=== PATIENT | male | born 1955 | race Caucasian/White ===

== ENCOUNTER 2018-11-23 14:16 | Emergency (ER) | payer MEDICARE, SELFPAY ==
[2018-11-23 14:17] VITALS: BP 133/92; PULSE 78; RESP 18; TEMP 36.6; O2SAT 98; BMI 31.7
--- NOTE | 2018-11-23 14:31 | RAD_ITS ---
STUDY: X-RAY CHEST REASON FOR EXAM: Male, 63 years old. Left lower anterior rib pain. TECHNIQUE: PA and lateral views of the chest. COMPARISON: Comparison is made with prior examination dated September 07, 2016. FINDINGS: Surgical clips are seen in the right axillary region. Hyperinflation. Mild degree of increased markings at the right lung base suggestive of a atelectasis. This is superimposed on mild degree of bibasilar scarring. There is mild cardiac enlargement. A right-sided dual-chamber pacemaker is seen. Normal mediastinum and nesha. There is prominence of the pulmonary hilar arteries without peripheral pulmonary vascular congestion, suggesting pulmonary hypertension. There is atherosclerotic calcification of the aortic arch with tortuosity. There are diffuse degenerative changes of the visualized thoracic spine. Normal visualized ribs, clavicles, and shoulders. There is no demonstrated abnormality of the visualized soft tissue structures of the upper abdomen. RAD/Chest PA and Lateral IMPRESSION: Mild degree of increased markings at the right lung base suggestive of mild right basilar atelectasis superimposed on scarring. Electronically Signed: Shemar Wylie, at 15:04 EDT , Service support ,
--- NOTE | 2018-11-23 15:30 | ED.DCSUM_ITS ---
- ER Visit Summary Date of Service: 11/23/18 Chief Complaint: Left lower rib cage pain History of Present Illness: The patient is a 63 M states he was working on his car he was leaning over the front cord into the engine of the car when he felt a pop. This was on Thursday he has had pain to his left lower anterior rib cage since that time. Denies any shortness of breath. Is worse with movement. He denies any hemoptysis. Patient is on Xarelto. He also has a history of CAD, cardiac stents hypertension high cholesterol. Physical Examination: Older male no acute distress. Vital signs stable afebrile. HEENT exam unremarkable. Neck nontender. Lungs clear to auscultation bilaterally. Heart regular rate and rhythm no murmur. Chest wall left lower rib cage Chhaya tender to palpation. There is no crepitance or subcu air. No gross bony deformity. But there is bony tenderness. Abdomen is soft and nontender normal bowel sounds no peritoneal signs. The left upper quadrant is nontender. Extremities moves all 4. Neurovascular intact. Calves are nontender. Neurologically he is awake and alert with no focal motor deficits. Test Results: Chest x-ray AP lateral view shows no acute abnormality. There is a pacemaker defibrillator. There is no obvious rib fracture. No pneumothorax. No effusion. This is read both by myself and the radiologist. Emergency Department Course and Treatment: Discussed x-ray results the patient. On repeat exam at 1532 patient is doing well. Treatment Plan: Ice to the area. [place] for pain as needed. Pillow to brace the rib cage injury site. Patient was instructed that this could be a nondisplaced fracture that is not seen on a plain film. Disposition: Discharge Impression: Acute left rib cage contusion This note was generated with [employer] dictation software. It may contain incorrect words, spelling, and punctuation that were not noted in review of the chart prior to signing ED Disposition - Plan for ED Patient: Referrals: Ronald Phelps III, MD [Primary Care Provider] -
--- NOTE | 2018-11-23 15:34 | DCINST.ED_ITS ---
ED Disposition - Plan for ED Patient: Disposition: Home or Assisted Living Instructions: RIB: CONTUSION vs MINOR FRACTURE Prescriptions: Hydrocodone/Acetaminophen [[place] 10-325 Tablet] 1 ea PO 4X/DAY PRN PRN 4 Days #14 tab PRN Reason: Pain Prescription Printed Referrals: Ronald Phelps III, MD [Primary Care Provider] - 1 Week if not improving Additional Instructions: You have a bruised rib. [place] for pain. Ice to the area. Use a pillow to support the rib. Follow-up with your doctor if not improving.
== END 2018-11-23 15:45 | disposition home or self-care (01) ==
PROVIDERS: Emergency Provider Emergency Medicine; Family Provider Family Medicine; PCP Family Medicine
DX: S20.212A Contusion of left front wall of thorax, initial encounter (principal); W22.09XA Striking against other stationary object, initial encounter; Y93.9 Activity, unspecified; Y92.9 Unspecified place or not applicable; Y99.9 Unspecified external cause status; I25.10 Atherosclerotic heart disease of native coronary artery without angina pectoris; I10 Essential (primary) hypertension; E78.00 Pure hypercholesterolemia, unspecified; Z72.0 Tobacco use; I25.2 Old myocardial infarction; Z79.82 Long term (current) use of aspirin; Z79.01 Long term (current) use of anticoagulants; Z79.899 Other long term (current) drug therapy; Z95.5 Presence of coronary angioplasty implant and graft; Z95.810 Presence of automatic (implantable) cardiac defibrillator
CPT/HCPCS: 71046; 99283

== ENCOUNTER 2018-12-08 13:04 | Emergency (ER) | payer MEDICARE, SELFPAY ==
[2018-12-08 13:05] VITALS: BP 139/84; PULSE 84; RESP 18; TEMP 36.7; O2SAT 97; BMI 31.1
--- NOTE | 2018-12-08 13:50 | RAD_ITS ---
STUDY: X-RAY - PELVIS AND LEFT HIP REASON FOR EXAM: Male, 63 years old. 4 day history of pain. No known injury. TECHNIQUE: 3 views of the pelvis and hip. COMPARISON: None. FINDINGS: There is a non-specific bowel gas pattern. There are atherosclerotic vascular calcifications of the pelvic arteries. Normal bilateral iliac wings, sacroiliac joints and visualized sacrum. Normal bilateral superior and inferior pubic rami. Normal pubic symphysis. Normal bilateral ischial tuberosities. Normal visualized femoral head. Normal acetabulum. There is mild articular joint space narrowing of the hip. Degenerative changes in the lower lumbar spine. RAD/HIP, UNI W/ Pelvis 2-3 Views IMPRESSION: Degenerative changes. No fracture is seen. Electronically Signed: Shemar Wylie, at 14:14 EDT , Service support ,
[2018-12-08] MEDS: oxyCODONE 5 MG Tablet PO (14:07)
--- NOTE | 2018-12-08 14:35 | ED.DCSUM_ITS ---
History of Present Illness Chief Complaint: Lower Extremity Injury Informant: Patient Narrative: Bud presents with left hip pain for 3 days. 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 He is able to ambulate but has quite a bit of pain in his groin and buttock region. He has no other fall and no other pain. Pain is worse with ambulating and movement. Fever or chills. Past Medical History - Allergies and Home Meds Allergies/Adverse Reactions: Allergies codeine Allergy (Verified 12/08/18 13:05) Itching Primary Care Physician: Ronald Phelps III, MD [Primary Care Provider] - Past Medical History: - - He does have a significant medical history see [facility] Smoking Status: Current every day smoker Review of Systems All systems negative except as indicated General: Denies: Fever Musculoskeletal: Reports: - - Hip pain as in HPI Skin: Denies: Rash Neurological: Denies: Weakness Hematologic: Denies: Easy bruising, Easy bleeding Physical Exam Vital Signs/Narrative: Vital Signs Temp Pulse Resp BP Pulse Ox 12/08/18 13:05 98.1 F 84 18 139/84 H 97 General: Well nourished, Well developed Neck: Supple Respiratory: No distress, CTA bilaterally Abdomen: Soft, Nontender Back: Normal Inspection Extremities: - - There is no 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 He has no tenderness over his greater trochanter. Skin: Normal color Neurological: Alert, Oriented x3 Diagnostic/Tx/Re-eval Left hip x-ray reviewed by me, I am looking at the x-ray at this moment I see left-sided DJD, SI joint is intact. No fracture is seen. - Medical Decision Making Patient has a normal x-ray. I will treat with analgesia. ED Disposition - Plan for ED Patient: Disposition: Home or Assisted Living Diagnosis: Degenerative joint disease (DJD) of hip Instructions: ED Osteoarthritis Prescriptions: Oxycodone HCl/Acetaminophen [Percocet 5/325] 1 tab PO Q6H PRN PRN 3 Days #12 tab PRN Reason: Pain Prescription Printed Referrals: Ronald Phelps III, MD [Primary Care Provider] - 3-5 Days
== END 2018-12-08 14:59 | disposition home or self-care (01) ==
PROVIDERS: Emergency Provider Emergency Medicine; Family Provider Family Medicine; PCP Family Medicine
DX: M16.12 Unilateral primary osteoarthritis, left hip (principal); F17.200 Nicotine dependence, unspecified, uncomplicated; Z88.5 Allergy status to narcotic agent; Z79.01 Long term (current) use of anticoagulants; Z79.899 Other long term (current) drug therapy
CPT/HCPCS: 73502; 99283

== ENCOUNTER → 2019-02-03 12:20 | Outpatient (CLI) | payer MEDICARE, SELFPAY ==
[2019-02-03 13:24] LABS: Anion Gap 7 (5-15); BUN 25 mg/dL (7-18); Calcium,Total 8.9 mg/dL (8.5-10.1); Chloride 104 mmol/L (98-107); Creatinine, Serum 1.47 mg/dL (0.70-1.30); EST Glomerular Filtration Rate 51 mL/min (>60); Est Glom Filt Rate - Afr Amer 62 mL/min (>60); Glucose 119 mg/dL (74-106); Potassium 3.9 mmol/L (3.5-5.1); Sodium Level 140 mmol/L (136-145)
== END ==
PROVIDERS: Family Provider Family Medicine; PCP Family Medicine
DX: I48.19 Other persistent atrial fibrillation (principal)
CPT/HCPCS: 36415; 80048

== ENCOUNTER → 2020-01-03 14:29 | Outpatient (CLI) | payer MEDICARE, SELFPAY ==
--- NOTE | 2020-01-03 14:45 | CT_ITS ---
STUDY: CT RIGHT LOWER EXTREMITY REASON FOR EXAM: Right knee osteoarthritis, surgical planning. TECHNIQUE: Transaxial CT imaging of the lower extremity was performed. Coronal and sagittal images were reformatted. Individualized dose optimization techniques were used for this CT. COMPARISON: None. FINDINGS: Knee: There are marginal osteophytes of the medial femorotibial compartment without significant joint space narrowing. There is a cyst in the medial aspect of the distal femoral metaphysis. There are marginal osteophytes, subchondral eburnation and mild joint space narrowing of the lateral femorotibial compartment (coronal reconstruction 30). There are small marginal osteophytes and mild joint space narrowing of the patellofemoral compartment (sagittal reconstruction 32). Normal proximal tibiofibular articulation. There is a joint effusion. There is an intra-articular body at the anterior aspect of the knee joint (sagittal reconstructions 31-35). There is a prominent intra-articular body in the distal popliteus tendon sheath (sagittal reconstructions 35-42). The quadriceps tendon is grossly normal. The patellar tendon is grossly normal. Normal Hoffa''s fat pad. There is vascular calcification. Hip: There are very small marginal osteophytes of the femoral head without joint space narrowing of the hip joint. Ankle: Normal tibiotalar, posterior subtalar, talonavicular and calcaneocuboid articulations. There is a small plantar calcaneal enthesophyte. There is an ossification at the distal aspect of the medial malleolus. CT/Extremity Lower without Contra IMPRESSION: Right knee arthrosis with intra-articular bodies. Right knee joint effusion. Electronically Signed: Alex Norman MD at 12:26 EDT Tel , Service support ,
[2020-01-03 17:16] LABS: Magnesium 2.1 mg/dL (1.6-2.6)
== END ==
PROVIDERS: Anesthesiology; Referring Provider Orthopaedic Surgery; Visit Provider Orthopaedic Surgery
DX: M17.11 Unilateral primary osteoarthritis, right knee (principal); M21.161 Varus deformity, not elsewhere classified, right knee
CPT/HCPCS: 73700; 83735

== ENCOUNTER 2020-01-16 07:38 | Observation (INO) | payer MEDICARE, SELFPAY ==
[2020-01-03 16:24] LABS: Absolute Lymphocyte Count 2.08 X10^3/uL (0.83-4.51); Absolute Neutrophil Count 3.8 X10^3/uL (2.0-7.7); Basophil# 0.08 X10^3/uL; Basophil% 1.1 % (0-1); Eosinophil# 0.49 X10^3/uL; Eosinophils% 6.9 % (0-5); Hemoglobin 14.4 g/dL (13.0-16.5); Lymphocyte # 2.08 X10^3/ul (4.0); Lymphocyte % 29.4 % (19-41); Mean Corp Hgb Conc 31.3 g/dL (32-36); Mean Corpuscular Hgb 30.3 pg (27.0-32.0); Mean Corpuscular Volume 96.8 fL (80-94); Mean Platelet Vol. 9.9 fl (6.2-12.0); Monocyte% 8.5 % (0-10); NRBC Flagged by Analyzer 0 % (0-5); Neutrophil % 53.8 % (47-70); Platelet Count 424 K/mm3 (150-450); RBC Distribution Width CV 13.2 % (11.6-14.6); RBC Distribution Width SD 47.1 fl (35.1-43.9); Red Blood Count 4.75 M/mm3 (4.6-6.2); White Blood Count 7.1 K/mm3 (4.4-11.0)
[2020-01-03 16:50] LABS: ALB/GLOB Ratio 0.8 RATIO (0.9-2.4); AST(SGOT) 15 U/L (15-37); Alanine Aminotransfer ALT/SGPT 19 U/L (16-61); Albumin, Serum 3.4 g/dL (3.2-5.0); Alkaline Phosphatase 67 U/L (45-117); Anion Gap 4 (5-15); BUN 22 mg/dL (7-18); BUN/Creat Ratio 15.3 RATIO (10-20); Calcium,Total 8.7 mg/dL (8.5-10.1); Chloride 105 mmol/L (98-107); Cholesterol 139 mg/dL (200); Creatinine, Serum 1.44 mg/dL (0.70-1.30); EST Glomerular Filtration Rate 53 mL/min (>60); Est Glom Filt Rate - Afr Amer 64 mL/min (>60); Globulin 4.2 g/dL (2.2-4.2); Glucose 91 mg/dL (74-106); High Density Lipoprotein 44 mg/dL; Potassium 4.1 mmol/L (3.5-5.1); Protein, Total 7.6 g/dL (6.4-8.2); Sodium Level 136 mmol/L (136-145); Triglycerides 104 mg/dL; Very Low Density Lipoprotein 21 mg/dL (5-40)
--- NOTE | 2020-01-09 09:20 | EKG12_ITS ---
Test Reason : PRE OP Blood Pressure : / mmHG Vent. Rate : 087 BPM Atrial Rate : 100 BPM P-R Int : 000 ms QRS Dur : 176 ms QT Int : 440 ms P-R-T Axes : 000 270 063 degrees QTc Int : 529 ms Atrial fibrillation Right bundle branch block Possible Lateral infarct , age undetermined Abnormal ECG Confirmed by ANGELA JUSTICE, SAM ([id number]), editorial cartoonist NICHELLE WETZEL ([id number]) on 01/11/2020 10:48:56 AM Referred By: Sundeep Rueda Confirmed By:ERNESTINA MILLER MD
[2020-01-16] VITALS (16 sets, daily range): BP systolic 91–163; BP diastolic 63–89; PULSE 58–78; RESP 16–18; TEMP 36.3–37.6; O2SAT 95–100; BMI 28.6
--- NOTE | 2020-01-16 | SYN_PTH ---
PATIENT: DL STEEN LOC: MS3 U#:[id number] AGE/SX: 64/M [place] [facility] [place]16[place]: Dr. Sundeep Rueda DO : 1955 BED: 1 DIS: 01/17/2020 SPEC #: [id number] RECD: 01/16/20 13:25 STATUS: MAMTA REQ #: [id number] MANUEL: 01/16/20 00:[address]: Sundeep Rueda DEPT: SURGICAL PATHOLOGY RECD BY: Stalin Orellana ENTERED: 01/16/20 13:26 SP TYPE: SYNOVIUM ANDREINA DR: Keya Primary Care Phys Tissues: A - Synovial tissue of joint, NOS Knee, NOS Procedures: Decalcification bone/plaque Surgery Specimen Level IV HEADER OPERATION: ERAS, total knee replacement robotic arm assist PRE-OP DIAGNOSIS: Unilateral primary osteoarthritis, valgus deformity TISSUE SUBMITTED: A - Right synovium tissue, B - Right knee bone and tissue MICROSCOPIC DIAGNOSIS A. Right synovial tissue: Fragments of fibroadipose tissue, fibroconnective tissue, skeletal muscle tissue and moderately reactive synovial tissue with extensive fibrinous exudation. B. Bone and soft tissue right knee, total knee replacement: Pieces of bone with degenerative osteoarthritic changes. Fibroadipose tissue, fibroconnective tissue and reactive synovial tissue with fibrinous exudation. CHANDANA:sylvia 01/19/20 MICROSCOPIC DESCRIPTION Slides are reviewed. GROSS DESCRIPTION A - Received in fixative is one container labeled with the patient's name and designated right synovium tissue. The specimen consists of multiple irregular fragments of loya, indurated tissue that in aggregate measure 10 x 8 x 3 cm. Water Chaser sections are submitted in four cassettes. B - Received is one container designated bone and soft tissue right knee. The specimen consists of multiple fragments of loya-yellow bone measuring in aggregate 11 x 10 x 3.5 cm. Also in the specimen container are multiple fragments of yellow-white soft tissue measuring in aggregate 10 x 9 x 3.5 cm. A number of bony fragments contain articular surfaces consistent with tibial plateau and femoral condyle and displaying prominent osteophyte formation, eburnation, and bone erosion. Water Chaser sections are submitted in two cassettes as follows: 1 - soft tissue, 2 - bone after decalcification. / CHANDANA:sylvia 01/16/20 TC:5 CPT: 22465 x2, 90186
[2020-01-16] MEDS: Lactated Ringers 1,000 ML 100 ML IV ×3 (06:18→21:30)
[2020-01-16] MEDS: Acetaminophen 500 MG Tablet 1000 MG PO ×3 (06:19→21:36)
[2020-01-16] MEDS: Gabapentin 600 MG Tablet PO (06:19)
[2020-01-16] MEDS: Insulin Lispro 100 UNIT/ML INSULN.PEN SC (06:34)
[2020-01-16 06:41] LABS: Bedside Glucose 245 mg/dL (70-110)
[2020-01-16] MEDS: Cefazolin 2 GM in 0.9% Normal Saline 100 ML IV (07:53)
--- NOTE | 2020-01-16 09:18 | OP.PCM_ITS ---
Report of Operation Date of Procedure: 01/16/20 Pre-Operative Diagnosis: OA with valgus deformity right knee Post-Operative Diagnosis: same with synovial cyst Surgery/Procedure Performed:: Right TKR with extensive synovectomy right knee job training supervisor: Jorge Bridges Type of Anesthesia:: General/Regional Anesthesiologist: Levi Dumont Specimen's removed: bone and synovium Estimated Blood Loss (mL): 25 cc - Admit VTE Documentation VTE Present on Admission: No VTE Mechan Device Prophylaxis: SCD's, Thigh High LUTHER Hose VTE Pharm Prophylaxis ordered?: Yes
--- NOTE | 2020-01-16 10:20 | RAD_ITS ---
STUDY: X-RAY - RIGHT KNEE REASON FOR EXAM: Male, 64 years old. POST OP Total knee TECHNIQUE: 2 view(s) of the knee. COMPARISON: None. FINDINGS: Normal visualized distal femur. Normal visualized proximal tibia and fibula. Normal proximal tibiofibular articulation. The patient is status post total knee replacement. There is good alignment. Postoperative soft tissue changes. RAD/Knee 1 or 2 Views IMPRESSION: Status post total knee replacement. There is good alignment. Postoperative soft tissue changes. Electronically Signed: Shemar Wylie, at 14:05 EDT , Service support ,
[2020-01-16 11:46] LABS: Hemoglobin 14.3 g/dL (13.0-16.5); Mean Corp Hgb Conc 32.5 g/dL (32-36); Mean Corpuscular Volume 95.2 fL (80-94); Mean Platelet Vol. 9.9 fl (6.2-12.0); Platelet Count 319 K/mm3 (150-450); RBC Distribution Width CV 13.5 % (11.6-14.6); Red Blood Count 4.62 M/mm3 (4.6-6.2); White Blood Count 6.8 K/mm3 (4.4-11.0)
[2020-01-16 11:52] LABS: Anion Gap 8 (5-15); BUN 17 mg/dL (7-18); BUN/Creat Ratio 13.7 RATIO (10-20); Calcium,Total 8.5 mg/dL (8.5-10.1); Chloride 106 mmol/L (98-107); Creatinine, Serum 1.24 mg/dL (0.70-1.30); EST Glomerular Filtration Rate 62 mL/min (>60); Est Glom Filt Rate - Afr Amer 75 mL/min (>60); Estimated Creatinine Clearance 68.02 ml/min; Glucose 117 mg/dL (74-106); Potassium 3.9 mmol/L (3.5-5.1); Sodium Level 140 mmol/L (136-145)
[2020-01-16] MEDS: Furosemide 40 MG Tablet PO (12:57)
[2020-01-16] MEDS: Senna/Docusate Sodium 1 Tablet 2 TABLET PO ×2 (12:57→21:37)
[2020-01-16] MEDS: oxyCODONE 5 MG Tablet PO ×2 (15:04→21:39)
[2020-01-16] MEDS: Cefazolin 1 GM/50 ML BAG IV ×2 (16:43→23:49)
[2020-01-16] MEDS: Rivaroxaban 20 MG Tablet PO (16:44)
[2020-01-16] MEDS: Metoprolol Tartrate 50 MG Tablet PO (21:36)
[2020-01-16] MEDS: traZODone 50 MG Tablet 150 MG PO (21:37)
[2020-01-17 02:10] VITALS: BP 124/81; PULSE 65; RESP 16; TEMP 36.4; O2SAT 98
[2020-01-17] MEDS: oxyCODONE 5 MG Tablet PO ×3 (02:16→14:03)
[2020-01-17] MEDS: Acetaminophen 500 MG Tablet 1000 MG PO ×2 (06:37→14:04)
--- NOTE | 2020-01-17 07:39 | PCM.PN.ORT ---
Subjective: Patient sitting at bedside eating breakfast. Patient states pain is very well managed. Patient denies any chest pain, shortness of breath, calf pain, nausea vomiting. Patient has no other complaints states he is ready for discharge home today. Objective: Dressing is clean dry intact. Negative signs and symptoms of DVT. Vital signs and labs reviewed noted medical records. Patient is afebrile. Patient has no respiratory distress and speaking in full sentences. - Physical Exam Vitals/I&O's: Vital Signs Temp Pulse Resp BP Pulse Ox 97.6 F L 65 16 124/81 H 98 01/17/20 02:10 01/17/20 02:10 01/17/20 02:10 01/17/20 02:10 01/17/20 02:10 Oxygen Flow Rate (L/min) 6 Oxygen Delivery Method Room Air Weight: 98.4 kg Body Mass Index (BMI) 28.6 Intake and Output for Last 24 Hours 01/15/20 01/16/20 01/17/20 23:59 23:59 23:59 Intake Total 2936.5 / 2936.5 1640 / 1640 Output Total 400 / 400 Balance 2936.5 / 2936.5 1240 / 1240 General: Alert, Oriented x3, Cooperative HEENT: PERRLA Oral: Moist Mucosa Lungs: Clear to auscultation Neurological: Cranial nerves II-XII grossly intact Psych/Mental Status: Normal Affect, Alert and oriented to time, place, person, mood and affect Laboratory Results 01/16/20 11:33: WBC 6.8, RBC 4.62, Hgb 14.3, Hct 44.0, MCV 95.2 H, MCH 31.0, MCHC 32.5, RDW Std Deviation 47.0 H, RDW Coeff of Rhea 13.5, Plt Count 319, MPV 9.9 01/16/20 11:33: Sodium 140, Potassium 3.9, Chloride 106, Carbon Dioxide 26.0, Anion Gap 8, BUN 17, Creatinine 1.24, Estim Creat Clear Calc 68.02, Est GFR (MDRD) Af Amer 75, Est GFR (MDRD) Non-Af 62, BUN/Creatinine Ratio 13.7, Glucose 117 H, Calcium 8.5 Current Medications Acetaminophen (Acetaminophen 500 Mg Tablet) 1,000 mg PO Q8 JASBIR Last Admin: 01/17/20 06:37 Dose: 1,000 mg Documented by: Albuterol Sulfate (Albuterol 2.5 Mg/3 Ml Vial.Neb.) 2.5 mg INHALATION Q4H PRN PRN PRN Reason: Wheezing Amlodipine Besylate (Amlodipine 10 Mg Tablet) 10 mg PO DAILY [facility] Furosemide (Furosemide 40 Mg Tablet) 40 mg PO DAILY [facility] Last Admin: 01/16/20 12:57 Dose: 40 mg Documented by: Sodium Chloride () 250 mls @ 15 mls/hr IV .[id number] PRN PRN Reason: Saline Flush Sodium Chloride () 250 mls @ 15 mls/hr IV .[id number] PRN PRN Reason: Additional IVPB Infusion Insulin Human Lispro (Insulin Lispro 100 Unit/Ml Insuln.Pen) 1 - 6 unit SC Q4H PRN PRN; Protocol PRN Reason: BG>/= 180, SEE PROTOCOL Last Admin: 01/16/20 06:34 Dose: 2 units Documented by: Lisinopril (Lisinopril 10 Mg Tablet) 10 mg PO DAILY [facility] Metoprolol Tartrate (Metoprolol Tartrate 50 Mg Tablet) 50 mg PO BID [facility] Last Admin: 01/16/20 21:36 Dose: 50 mg Documented by: Ondansetron HCl (Ondansetron 4 Mg/2 Ml Vial) 4 mg IV Q8H PRN PRN PRN Reason: NAUSEA Oxycodone HCl (Oxycodone 5 Mg Tablet) 5 - 10 mg PO Q4H PRN PRN PRN Reason: Pain Score 4-10 Last Admin: 01/17/20 02:16 Dose: 10 mg Documented by: Promethazine HCl (Promethazine 25 Mg/Ml Syringe) 12.5 mg IM Q6H PRN PRN; Protocol PRN Reason: NAUSEA/VOMITING Rivaroxaban (Rivaroxaban 20 Mg Tablet) 20 mg PO SUPPER [facility] Last Admin: 01/16/20 16:44 Dose: 20 mg Documented by: Senna/Docusate Sodium (Senna/Docusate Sodium 1 Tablet) 2 tablet PO BID [facility] Last Admin: 01/16/20 21:37 Dose: 2 tablet Documented by: Sodium Chloride (0.9% Saline Lock 10 Ml Syringe) 10 - 40 ml IV UD PRN PRN Reason: SALINE FLUSH Trazodone HCl (Trazodone 50 Mg Tablet) 150 mg PO [facility] Last Admin: 01/16/20 21:37 Dose: 150 mg Documented by: Medical Necessity - Tobacco Use Smoking Status: Current every day smoker Assessment/Plan Status post right total knee arthroplasty Plan 1. Continue all pain medications as prescribed 2. Continue physical therapy, weight-bear as tolerated with walker 3. Resume all preoperative anticoagulation Xarelto/Plavix as prescribed for postop DVT prophylaxis 4. Encourage incentive spirometry 5. Discharge home today after p.m. therapy 6. Patient will continue physical therapy at [facility] 7. Follow-up as scheduled, see pink sheet
--- NOTE | 2020-01-17 07:45 | PCM.DC.TKR ---
Discharge Diet: No Restrictions Discharge Activity: May Not Drive, May Shower, Use Walker May shower in (days): 3 Ice area for (Minutes): 20 - each hour while awake. Weight Bearing Status: Weight bearing as tolerated Elevate: Operative Extremity Additional Activity Instructions:: Wear elastic stockings for 2 weeks after your surgery. Call your doctor if your incision/area has: Continuous Slow Oozing, Sudden Increased Bleeding, Increased Pain/ Swelling, Increased Redness, Foul Smelling Discharge Call your doctor if you observe: Fever of 101 or Higher, Coldness, Increased Pain - in extremity, Numbness or Tingling, Change in Color, Calf discomfort, Uncontrolled pain Change Dressing in (Days):: 0 - and daily as needed. Remove Dressing in (days):: 8 Cleanse incision/area with: Soap & Water Allergies/Adverse Reactions: Allergies codeine Allergy (Verified 01/16/20 05:39) Itching Medications to take at Discharge Lisinopril [Zestril] 10 mg PO DAILY 03/07/13 Metoprolol Tartrate [Lopressor (beta doug)] 50 mg PO BID 03/07/13 Albuterol Inhaler [Ventolin Hfa] 1 - 2 puff INHALATION Q4H PRN PRN #1 inhaler 08/17/16 Amlodipine [Norvasc] 10 mg PO DAILY #30 tablet 08/17/16 Furosemide [Lasix] 40 mg PO DAILY #30 tablet 09/07/16 Rivaroxaban [Xarelto] 20 mg PO DINNER 01/16/20 Trazodone HCl 01/16/20 Acetaminophen [Tylenol] 1,000 mg PO Q8 #90 tab 01/17/20 Oxycodone [Oxyir] 5 - 10 mg PO Q4H PRN PRN 7 Days #84 tablet 01/17/20 Rivaroxaban [Xarelto] 20 mg PO SUPPER tablet 01/17/20 Senna/Docusate Sodium [Senokot-S] 2 tablet PO BID tablet 01/17/20 The following prescriptions were given: Oxycodone [Oxyir] 5 - 10 mg PO Q4H PRN PRN 7 Days #84 tablet PRN Reason: Pain Score 4-10 Transmission Status: Sent to [facility] Acetaminophen [Tylenol] 1,000 mg PO Q8 #90 tab Transmission Status: Pending to [facility] Orders to be completed after discharge: 12 Lead EKG [[facility]] Time Frame: 01/09/20, Location: None Selected Magnesium Time Frame: 01/09/20, Facility: [facility], Location: Laboratory Primary Care Physician: Care Physician,No Primary [Primary Care Provider] - Test Results: Test results from this visit will be discussed in further detail at your follow-up appointment, if applicable. Please Follow Up With: Jorge Bridges PA-C When: as scheduled (see pink sheet)
[2020-01-17 07:55] LABS: Hematocrit 36.5 % (40-54); Mean Corp Hgb Conc 32.9 g/dL (32-36); Mean Corpuscular Hgb 31.5 pg (27.0-32.0); Mean Corpuscular Volume 95.8 fL (80-94); Mean Platelet Vol. 10.6 fl (6.2-12.0); Platelet Count 253 K/mm3 (150-450); RBC Distribution Width CV 13.7 % (11.6-14.6); RBC Distribution Width SD 47.8 fl (35.1-43.9); Red Blood Count 3.81 M/mm3 (4.6-6.2); White Blood Count 9.3 K/mm3 (4.4-11.0)
[2020-01-17 08:10] LABS: Anion Gap 5 (5-15); BUN 40 mg/dL (7-18); BUN/Creat Ratio 20.2 RATIO (10-20); Calcium,Total 8.8 mg/dL (8.5-10.1); Chloride 114 mmol/L (98-107); Creatinine, Serum 1.98 mg/dL (0.70-1.30); EST Glomerular Filtration Rate 36 mL/min (>60); Est Glom Filt Rate - Afr Amer 44 mL/min (>60); Glucose 105 mg/dL (74-106); Potassium 4.1 mmol/L (3.5-5.1); Sodium Level 142 mmol/L (136-145)
[2020-01-17 09:00] VITALS: BP 111/72; PULSE 77; RESP 18; TEMP 36.7; O2SAT 98
[2020-01-17 09:14] VITALS: PULSE 77
[2020-01-17] MEDS: amLODIPine 10 MG Tablet PO (09:14)
[2020-01-17] MEDS: Metoprolol Tartrate 50 MG Tablet PO (09:14)
[2020-01-17] MEDS: Senna/Docusate Sodium 1 Tablet 2 TABLET PO (09:14)
[2020-01-17] MEDS: 0.9% Saline Lock 10 ML Syringe IV (09:15)
--- NOTE | 2020-01-17 10:25 | CASEMGMT ---
BRENNEN AGUILERA Face to Face with patient for initial transition planning/care coordination assessment. BRENNEN AGUILERA introduced self and role at [facility]. Patient lying in bed, alert and oriented. Patient willing to participate in assessment and is able to answer all questions appropriately. Care providers, pharmacy, and demographics verified. Patient wishes to discharge home, and is setup with outpatient therapy at [facility]. Patient states he has no further needs or concerns at this time. CM to follow for discharge planning needs that may arise. PCP: No PCP, list provided to patient Specialists: prince Lewis Preferred Pharmacy: [facility] Insurance: [facility] Prescription Benefit: yes Living Will/HPOA: none LNOK: son Living Arrangements: Patient lives alone in a 1st floor apartment with no steps. Patient is independent at home prior to surgery. Transportation: son DME/C: Patient has walker, cane, and raised toilet at home. Patient is scheduled for outpatient therapy at [facility] starting Thursday. Disposition Plan: Patient to discharge home with outpatient therapy, family support, and follow-up plans in place. Ayaka RILEY, RN, CM
--- NOTE | 2020-01-17 12:13 | CASEMGMT ---
BRENNEN AGUILERA in to discuss MOSQUERA form with patient. RN ALE explained MOSQUERA form to patient, patient voiced understanding. Patient signed MOSQUERA form and placed in chart. Patient provided copy of signed MOSQUERA form. Patient had no further questions or concerns at home.
--- NOTE | 2020-01-17 13:38 | PHA.DC.COU ---
Pharmacy Services has performed discharge medication counseling for this patient. 1. ACETAMINOPHEN [id number] PO Q8H 2. OXYCODONE 5-10MG PO Q4H PRN PAIN 3. SENNA/DOCUSATE 2T PO BID PRN The patient was counseled on the following discharge medications and changes in medications for homegoing review. The Reason for Use, instructions for use, and potential side effects were reviewed for all new medications. The patient's questions regarding all of their medications were answered. The patient was able to verbally demonstrate an understanding of their discharge medications. Patient counseled by diploma pharmacy technicianLaura.
[2020-01-17 14:07] VITALS: BP 116/66; PULSE 85; RESP 18; TEMP 36.7; O2SAT 99
== END 2020-01-17 14:12 | disposition home or self-care (01) ==
LOC: MS3 08:30 → SDC 08:31 → MS3 08:32
PROVIDERS: Anesthesiology; Physician Assistant; Admitting Provider Orthopaedic Surgery; Referring Provider Orthopaedic Surgery; Visit Provider Orthopaedic Surgery
PROC: 0SRC0JZ Replacement of Right Knee Joint with Synthetic Substitute, Open Approach (ICD-10-PCS; CPT 27447; principal; 2020-01-16 07:00)
DX: M17.11 Unilateral primary osteoarthritis, right knee (principal); M21.061 Valgus deformity, not elsewhere classified, right knee; I25.10 Atherosclerotic heart disease of native coronary artery without angina pectoris; I11.0 Hypertensive heart disease with heart failure; G47.30 Sleep apnea, unspecified; I48.91 Unspecified atrial fibrillation; F32.9 Major depressive disorder, single episode, unspecified; E78.00 Pure hypercholesterolemia, unspecified; I25.2 Old myocardial infarction; I50.9 Heart failure, unspecified; F17.210 Nicotine dependence, cigarettes, uncomplicated; Z79.899 Other long term (current) drug therapy; Z79.02 Long term (current) use of antithrombotics/antiplatelets; Z79.01 Long term (current) use of anticoagulants; Z95.810 Presence of automatic (implantable) cardiac defibrillator
CPT/HCPCS: 01400; 27447; 64447; S2900; 36415; 73560; 80048; 80053; 80061; 82962; 85025; 85027; 87081; 87635; 88305; 88311; 93005; 96361; 96365; 96366; 97110; 97116; 97162; 97166; 97530; 97535; 99218; 99251; 99406; C1776; C9803; J7040; J7120; A4216; G0378; G0379; G0463; J2405; U0003

== ENCOUNTER → 2020-01-19 12:13 | Outpatient (CLI) | payer MEDICARE, SELFPAY ==
[2020-01-16 12:43] VITALS: BMI 28.6
[2020-01-19 13:12] LABS: Magnesium 1.7 mg/dL (1.6-2.6)
[2020-01-19 13:18] LABS: Anion Gap 8 (5-15); BUN 14 mg/dL (7-18); BUN/Creat Ratio 10.9 RATIO (10-20); Calcium,Total 9.1 mg/dL (8.5-10.1); Chloride 108 mmol/L (98-107); Creatinine, Serum 1.28 mg/dL (0.70-1.30); EST Glomerular Filtration Rate 60 mL/min (>60); Est Glom Filt Rate - Afr Amer 73 mL/min (>60); Glucose 121 mg/dL (74-106); Potassium 3.8 mmol/L (3.5-5.1); Sodium Level 139 mmol/L (136-145)
== END ==
PROVIDERS: Anesthesiology; Referring Provider Physician Assistant; Visit Provider Physician Assistant
DX: Z01.818 Encounter for other preprocedural examination (principal); N17.9 Acute kidney failure, unspecified
CPT/HCPCS: 36415; 80048; 83735

== ENCOUNTER → 2020-01-27 13:18 | Outpatient (CLI) | payer MEDICARE, SELFPAY ==
[2020-01-16 12:43] VITALS: BMI 28.6
--- NOTE | 2020-01-27 13:23 | VDLE_ITS ---
Reason For Study: RLE pain RIGHT LEFT GSV is normal. CFV is compressible, spontaneous, phasic, CFV is compressible, spontaneous, phasic, competent, and demonstrates normal competent and demonstrates normal augmentation. augmentation. FV is compressible, spontaneous, phasic, competent and demonstrates normal augmentation. POP V is compressible, spontaneous, phasic, competent and demonstrates normal augmentation. T/P Trunk is compressible. PTV is compressible. RT PerV is compressible. Procedure Exam performed in department. The exam was diagnostic. A preliminary report was called and/or faxed to Dr. Rueda @ [phone] @ 1:50 pm. Interpretation Summary Deep veins of the right lower extremity are patent and compressible segmentally. There is no evidence of right lower extremity deep vein thrombosis. Valvular competence appears intact within the proximal deep venous system on the right . The right great saphenous vein appears patent and compressible segmentally. Ordering Physician: Sundeep Rueda Referring Physician: NO PCP Performed By: Alyce Christianson, JOSE, RVT
== END ==
LOC: CVS 13:20
PROVIDERS: Referring Provider Orthopaedic Surgery; Visit Provider Orthopaedic Surgery
DX: M79.604 Pain in right leg (principal)
CPT/HCPCS: 93971

== ENCOUNTER → 2021-10-22 | Outpatient (CLI) | payer MEDICARE, SELFPAY ==
[2021-10-22 15:14] LABS: Hematocrit 46.7 % (40-54); Hemoglobin 14.5 g/dL (13.0-16.5); Mean Corpuscular Hgb 28.3 pg (27.0-32.0); Mean Platelet Vol. 9.8 fl (6.2-12.0); Platelet Count 250 K/mm3 (150-450); RBC Distribution Width CV 17.1 % (11.6-14.6); RBC Distribution Width SD 57.1 fl (35.1-43.9); Red Blood Count 5.13 M/mm3 (4.6-6.2); White Blood Count 4.7 K/mm3 (4.4-11.0)
[2021-10-22 15:37] LABS: BNP,B-Type NATRIURETIC PEPTIDE 811.7 pg/mL (0-100)
[2021-10-22 15:53] LABS: ALB/GLOB Ratio 0.9 RATIO (0.9-2.4); AST(SGOT) 13 U/L (15-37); Alanine Aminotransfer ALT/SGPT 16 U/L (16-61); Albumin, Serum 3.3 g/dL (3.2-5.0); Alkaline Phosphatase 79 U/L (45-117); Anion Gap 3 (5-15); BUN 24 mg/dL (7-18); BUN/Creat Ratio 15.7 RATIO (10-20); Calcium,Total 8.6 mg/dL (8.5-10.1); Chloride 111 mmol/L (98-107); Cholesterol 113 mg/dL (200); Creatinine, Serum 1.53 mg/dL (0.70-1.30); EST Glomerular Filtration Rate 49 mL/min (>60); Est Glom Filt Rate - Afr Amer 59 mL/min (>60); Globulin 3.7 g/dL (2.2-4.2); Glucose 105 mg/dL (74-106); High Density Lipoprotein 47 mg/dL; Potassium 4.2 mmol/L (3.5-5.1); Sodium Level 141 mmol/L (136-145); Thyroid Stim Hormone (TSH) 1.79 uIU/mL (0.358-3.74); Triglycerides 114 mg/dL; Very Low Density Lipoprotein 23 mg/dL (5-40)
== END | disposition home or self-care (01) ==
LOC: LAB 14:22
DX: I50.22 Chronic systolic (congestive) heart failure (principal); I48.19 Other persistent atrial fibrillation; I51.9 Heart disease, unspecified; I25.10 Atherosclerotic heart disease of native coronary artery without angina pectoris
CPT/HCPCS: 36415; 80053; 80061; 83880; 84443; 85027

== ENCOUNTER → 2021-11-20 | Outpatient (CLI) | payer MEDICARE, SELFPAY ==
[2021-11-20 16:51] LABS: Absolute Lymphocyte Count 1.66 X10^3/uL (0.83-4.51); Absolute Neutrophil Count 2.7 X10^3/uL (2.0-7.7); Basophil# 0.08 X10^3/uL; Basophil% 1.4 % (0-1); Eosinophil# 0.33 X10^3/uL; Hematocrit 48.3 % (40-54); Lymphocyte # 1.66 X10^3/ul (0.83-4.51); Mean Corp Hgb Conc 31.1 g/dL (32-36); Mean Corpuscular Hgb 28.3 pg (27.0-32.0); Mean Corpuscular Volume 91.1 fL (80-94); Mean Platelet Vol. 11.1 fl (6.2-12.0); Monocyte# 0.76 X10^3/uL; Monocyte% 13.7 % (0-10); NRBC Flagged by Analyzer 0 % (0-5); Neutrophil % 48.7 % (47-70); Platelet Count 268 K/mm3 (150-450); RBC Distribution Width CV 17.8 % (11.6-14.6); RBC Distribution Width SD 58.4 fl (35.1-43.9); White Blood Count 5.5 K/mm3 (4.4-11.0)
[2021-11-20 17:28] LABS: Anion Gap 5 (5-15); BUN 31 mg/dL (7-18); BUN/Creat Ratio 20.1 RATIO (10-20); Calcium,Total 8.9 mg/dL (8.5-10.1); Chloride 109 mmol/L (98-107); Creatinine, Serum 1.54 mg/dL (0.70-1.30); EST Glomerular Filtration Rate 48 mL/min (>60); Est Glom Filt Rate - Afr Amer 58 mL/min (>60); Glucose 50 mg/dL (74-106); Magnesium 2.2 mg/dL (1.6-2.6); Potassium 4.3 mmol/L (3.5-5.1); Sodium Level 141 mmol/L (136-145)
[2021-11-20 21:51] LABS: BNP,B-Type NATRIURETIC PEPTIDE 378.6 pg/mL (0-100)
== END | disposition home or self-care (01) ==
PROVIDERS: Visit Provider Physician Assistant
DX: I50.22 Chronic systolic (congestive) heart failure (principal)
CPT/HCPCS: 36415; 80048; 83735; 83880; 85025

== ENCOUNTER → 2021-12-16 | Outpatient (CLI) | payer MEDICARE, SELFPAY ==
[2021-12-16 14:20] LABS: Absolute Lymphocyte Count 0.72 X10^3/uL (0.83-4.51); Absolute Neutrophil Count 1.7 X10^3/uL (2.0-7.7); Basophil# 0.06 X10^3/uL; Basophil% 2.2 % (0-1); Eosinophil# 0.23 X10^3/uL; Eosinophils% 8.6 % (0-5); Hematocrit 40.7 % (40-54); Hemoglobin 12.6 g/dL (13.0-16.5); Lymphocyte # 0.72 X10^3/ul (0.83-4.51); Lymphocyte % 26.8 % (19-41); Mean Corpuscular Hgb 28.7 pg (27.0-32.0); Mean Corpuscular Volume 92.7 fL (80-94); Monocyte# 0.03 X10^3/uL; Monocyte% 1.1 % (0-10); NRBC Flagged by Analyzer 0 % (0-5); Neutrophil # 1.65 X10^3/uL (2.7-7.7); Neutrophil % 61.3 % (47-70); POSITIVE MORPHOLOGY YES; Platelet Count 381 K/mm3 (150-450); RBC Distribution Width CV 17.1 % (11.6-14.6); RBC Distribution Width SD 58.4 fl (35.1-43.9); RET-HE 30.7 pg (30-35); Red Blood Count 4.39 M/mm3 (4.6-6.2); Reticulocyte Count 1.55 % (0.5-1.5); White Blood Count 2.7 K/mm3 (4.4-11.0)
[2021-12-16 14:21] LABS: Differential Indicated SCAN CRITERIA MET
[2021-12-16 14:27] LABS: International Normalized Ratio 2.1; Prothrombin Time (Protime)PT. 23.3 SECONDS (11.7-14.9)
[2021-12-16 14:36] LABS: Partial Thromboplast Time 42.6 Seconds (24.1-36.2)
[2021-12-16 14:55] LABS: BNP,B-Type NATRIURETIC PEPTIDE 108.5 pg/mL (0-100)
[2021-12-16 14:58] LABS: ALB/GLOB Ratio 0.8 RATIO (0.9-2.4); AST(SGOT) 13 U/L (15-37); Alanine Aminotransfer ALT/SGPT 17 U/L (16-61); Albumin, Serum 3.3 g/dL (3.2-5.0); Alkaline Phosphatase 83 U/L (45-117); Anion Gap 8 (5-15); BUN 25 mg/dL (7-18); BUN/Creat Ratio 17.2 RATIO (10-20); Bilirubin, Direct 0.23 mg/dL (0.00-0.30); Chloride 107 mmol/L (98-107); Cholesterol 120 mg/dL (200); Creatinine, Serum 1.45 mg/dL (0.70-1.30); EST Glomerular Filtration Rate 52 mL/min (>60); Est Glom Filt Rate - Afr Amer 63 mL/min (>60); Ferritin 46 ng/mL (26-388); Globulin 3.9 g/dL (2.2-4.2); Glucose 108 mg/dL (74-106); High Density Lipoprotein 58 mg/dL; Iron 65 ug/dL (65-175); Iron Binding Capacity,Total 289 ug/dL (250-450); LDH 167 U/L (87-241); PERCENT IRON SATURATION 22.5 % (15.0-55.0); Potassium 3.9 mmol/L (3.5-5.1); Prealbumin 22.1 mg/dL (20.0-40.0); Protein, Total 7.2 g/dL (6.4-8.2); Reactive Lymphocyte RARE; Sodium Level 142 mmol/L (136-145); Triglycerides 77 mg/dL; Uric Acid 8.4 mg/dL (3.5-7.2); Very Low Density Lipoprotein 15 mg/dL (5-40)
[2021-12-16 16:02] LABS: HIV - WCH Non-Reactive (Nonreactive)
[2021-12-19 15:08] LABS: Dilute Prothrombin Time (dPT) 58.6 sec (0.0-47.6); Hexagonal Phase Phospholipid 2 6 sec (0-11); PTT-LA 55.5 sec (0.0-51.9); PTT-LA Incub Mix 49.6 sec (0.0-48.9); PTT-LA Mix 48.2 sec (0.0-48.9); Thrombin Time 17.2 sec (0.0-23.0); dPT Confirm Ratio 0.75 Ratio (0.00-1.34)
[2021-12-20 19:28] LABS: Haptoglobin 306 mg/dL (32-363); Interpretation Comment: (.)
== END | disposition home or self-care (01) ==
LOC: LAB 13:39
DX: I50.22 Chronic systolic (congestive) heart failure (principal); I42.8 Other cardiomyopathies; E83.10 Disorder of iron metabolism, unspecified
CPT/HCPCS: 36415; 80053; 80061; 82248; 82728; 83010; 83036; 83540; 83550; 83615; 83880; 84134; 84550; 85025; 85045; 85610; 85730; 86703; 86850; 86900; 86901

== ENCOUNTER → 2021-12-17 | Outpatient (CLI) | payer MEDICARE, SELFPAY ==
[2021-12-17 12:29] LABS: BNP,B-Type NATRIURETIC PEPTIDE 235.7 pg/mL (0-100)
[2021-12-17 12:40] LABS: Anion Gap 8 (5-15); BUN 23 mg/dL (7-18); BUN/Creat Ratio 18.1 RATIO (10-20); Calcium,Total 8.5 mg/dL (8.5-10.1); Chloride 105 mmol/L (98-107); Creatinine, Serum 1.27 mg/dL (0.70-1.30); EST Glomerular Filtration Rate 60 mL/min (>60); Est Glom Filt Rate - Afr Amer 73 mL/min (>60); Glucose 170 mg/dL (74-106); Potassium 4.2 mmol/L (3.5-5.1); Sodium Level 140 mmol/L (136-145)
== END | disposition home or self-care (01) ==
LOC: LABSPEC 11:39
DX: I13.0 Hypertensive heart and chronic kidney disease with heart failure and stage 1 through stage 4 chronic kidney disease, or unspecified chronic kidney disease (principal); I50.9 Heart failure, unspecified; N18.9 Chronic kidney disease, unspecified
CPT/HCPCS: 80048; 83880

== ENCOUNTER 2021-12-21 17:03 | Emergency (ER) | payer MEDICARE, SELFPAY ==
[2021-12-21] VITALS (15 sets, daily range): BP systolic 78–168; BP diastolic 51–106; PULSE 93–176; RESP 20–40; TEMP 36.8–38.3; O2SAT 9–98; BMI 33.5
--- NOTE | 2021-12-21 17:33 | EKG12_ITS ---
Test Reason : SOB Blood Pressure : / mmHG Vent. Rate : 165 BPM Atrial Rate : 054 BPM P-R Int : 000 ms QRS Dur : 132 ms QT Int : 258 ms P-R-T Axes : 000 -73 044 degrees QTc Int : 427 ms Undetermined rhythm : Consider Atrial Fibrillation Left axis deviation Right bundle branch block Inferior infarct , age undetermined , cannot be excluded Abnormal ECG Confirmed by SRINIVAS JUSTICE, GWENDOLYN ([id number]), health editor NICHELLE WETZEL ([id number]) on 12/25/2021 9:17:51 AM Referred By: SANDRA Confirmed By:GWENDOLYN ESPINO MD
--- NOTE | 2021-12-21 17:34 | EDS_ITS ---
HPI History of Present Illness Chief Complaint: Dizziness Detail of Chief Complaint: Fever Informant: patient and family Onset/Context/Timing Onset: Today and Hours Context: Sudden Onset Timing: Continuous Current Severity: Moderate Maximum Severity: Moderate Narrative Narrative: 66-year-old male with extensive cardiac past medical history for which he has CHF, CT, and cardiac stents on Plavix. Recent CVA and admission to [facility]. History of pacer defibrillator. Today there are changes medications he has a continuous infusion of milrinone. He developed a fever of 101 and mental status change according to the family. No vomiting or diarrhea. This occurred about 2 and half hours ago around 3 PM. Prior similar symptoms: No Recent Illness/Hospitalization: Yes PFSH PFSH Medical History CAD (coronary artery disease) Cardiogenic shock Chronic anemia CKD (chronic kidney disease), stage III History of CVA (cerebrovascular accident) HLD (hyperlipidemia) HTN (hypertension) RODOLFO (obstructive sleep apnea) Permanent atrial fibrillation Prediabetes Presence of combination internal cardiac defibrillator (ICD) and pacemaker Systolic CHF Tobacco use Home Medications lisinopril 10 mg tablet 10 mg PO DAILY 03/07/13 [History Last Taken 01/16/20] metoprolol tartrate 50 mg tablet 50 mg PO BID 03/07/13 [History Last Taken 01/16/20] albuterol sulfate 90 mcg/actuation aerosol inhaler (Ventolin HFA) 1 - 2 puff inhalation Q4H PRN PRN Wheezing ##1 08/17/16 [Rx Last Taken Unknown] amlodipine 10 mg tablet 10 mg PO DAILY ##30 08/17/16 [Rx Last Taken 01/16/20] furosemide 40 mg tablet 40 mg PO DAILY ##30 09/07/16 [Rx Last Taken Unknown] rivaroxaban 20 mg tablet 20 mg PO DINNER 01/16/20 [History Last Taken Unknown] trazodone 150 mg tablet 150 mg QHS 01/16/20 [History Last Taken Unknown] acetaminophen 500 mg tablet 1,000 mg PO Q8 #90 tabs 01/17/20 [Rx Last Taken Unknown] rivaroxaban 20 mg tablet 20 mg PO SUPPER 01/17/20 [Rx Last Taken Unknown] sennosides 8.6 mg-docusate sodium 50 mg tablet 2 tab PO BID 01/17/20 [Rx Last Taken Unknown] atorvastatin 80 mg tablet 80 mg PO QHS 12/21/21 [History Last Taken Unknown] buprenorphine 2 mg-naloxone 0.5 mg sublingual tablet 2 tab sublingual DAILY 12/21/21 [History Last Taken Unknown] clopidogrel 75 mg tablet 75 mg PO DAILY 12/21/21 [History Last Taken Unknown] digoxin 125 mcg (0.125 mg) tablet 125 mcg PO DAILY 12/21/21 [History Last Taken Unknown] hydralazine 50 mg tablet 50 mg PO TID 12/21/21 [History Last Taken Unknown] isosorbide dinitrate 20 mg tablet 20 mg PO TID 12/21/21 [History Last Taken Unknown] milrinone 20 mg/100 mL(200 mcg/mL) in 5 % dextrose intravenous piggybk ea 12/21/21 [History Last Taken Unknown] omeprazole 20 mg delayed release,disintegrating tablet 20 mg PO DAILY 12/21/21 [History Last Taken Unknown] sacubitril 24 mg-valsartan 26 mg tablet (Entresto) 1 tab PO BID 12/21/21 [History Last Taken Unknown] spironolactone 25 mg tablet 25 mg PO DAILY 12/21/21 [History Last Taken Unknown] Allergy/AdvReac Type Severity Reaction Status Date / Time codeine Allergy Itching Verified 01/16/20 05:39 Family History (Updated 12/21/21 @ 20:[address] Cornelia Mcmanus MD) Father Cancer Mother Diabetes Heart disease Surgical History (Updated 12/21/21 @ 21:[address] Cornelia Mcmanus MD) H/O heart artery stent History of mastoidectomy S/P cardiac pacemaker procedure S/P implantation of automatic cardioverter/defibrillator (AICD) S/P total knee replacement Social History (Updated 12/21/21 @ 20:[address] Cornelia Mcmanus MD) household members: none Smoking Status: Current every day smoker tobacco type: cigarettes Smoking packs per day: 0.5 Smoking cigarettes per day: 10.0 alcohol intake: never substance use type: former substance user and other details: On Chronic suboxone therapy. ROS ROS ED ROS Narrative Today confusion. Fever. Review of Systems ROS Unobtainable: Denies due to encephalopathy Constitutional Constitutional ED: Reports fever(s); Denies chills Eyes Eyes: Denies blurry vision ENT ENT ED: Denies ear pain Cardiovascular Cardiovascular: Denies chest pain Respiratory/Chest Respiratory/Chest: Denies cough or dyspnea Gastrointestinal Gastrointestinal: Denies abdominal pain Genitourinary Genitourinary ED: Denies dysuria or hematuria Musculoskeletal Musculoskeletal: Denies arthralgias Integumentary Denies abscess Neurologic Neurologic: Denies headache(s) Psychiatric Psychiatric: Denies anxiety Endocrine Endocrinology: Denies cold intolerance Hematologic/Lymphatic Hematologic/Lymphatic: Reports none Allergic/Immunologic Allergic/Immunologic ED: Denies mouth swelling or tongue swelling EXAM Physical Exam Narrative Exam Narrative: 66-year-old male appears ill. Has a temperature of 100.7. Clinically looks not well. Heart rate of 165. Blood pressure 168/93. Pulse ox 97% on room air no hypoxia. H EENT exam unremarkable. Neck nontender no JVD. Lungs clear to auscultation. Heart tachycardic 165 no murmur. Chest were nontender. Abdomen soft nontender. Moving all 4 extremities. Bruising on his extremities. Trace edema in his lower extremities. Neurologically is awake. He is answering limited questions. He does follow commands. There is family present in room they are helping with the history. Const Vital Signs: 12/21/21 17:05 12/21/21 17:23 12/21/21 17:53 Temperature 100.7 F H Temperature Source Oral Pulse Rate 165 H 176 H 120 H Respiratory Rate 40 H 40 H 24 H Blood Pressure 168/93 H 142/106 H 126/70 H Blood Pressure Mean 118 118 88 Pulse Ox 97 9 95 Oxygen Delivery Method Room Air Nasal Cannula Nasal Cannula Oxygen Flow Rate (L/min) 2 2 12/21/21 17:57 12/21/21 18:04 12/21/21 18:04 Temperature 101.0 F H Temperature Source Temporal Pulse Rate 116 H 116 H Respiratory Rate 20 H Blood Pressure 117/83 H Blood Pressure Mean 94 Pulse Ox 93 95 Oxygen Delivery Method Room Air Nasal Cannula Oxygen Flow Rate (L/min) 2 12/21/21 18:21 12/21/21 18:36 12/21/21 18:53 Temperature Temperature Source Pulse Rate 115 H 114 H 112 H Respiratory Rate 24 H 20 H Blood Pressure 129/77 H 108/74 99/68 Blood Pressure Mean 94 85 78 Pulse Ox 96 94 Oxygen Delivery Method Nasal Cannula Nasal Cannula Oxygen Flow Rate (L/min) 2 2 12/21/21 19:10 12/21/21 19:10 12/21/21 20:34 Temperature 99.7 F H 99.3 F H Temperature Source Temporal Temporal Pulse Rate 114 H 116 H 117 H Respiratory Rate 22 H 20 H Blood Pressure 94/68 97/57 L Blood Pressure Mean 76 70 Pulse Ox 95 98 Oxygen Delivery Method Nasal Cannula Nasal Cannula Oxygen Flow Rate (L/min) 2 2 12/21/21 20:34 12/21/21 21:00 12/21/21 21:00 Temperature 99.4 F H Temperature Source Temporal Pulse Rate 112 H 111 H 111 H Respiratory Rate 20 H 21 H Blood Pressure 97/57 L 85/55 L 85/55 L Blood Pressure Mean 70 65 65 Pulse Ox 95 95 Oxygen Delivery Method Nasal Cannula Nasal Cannula Oxygen Flow Rate (L/min) 2 2 12/21/21 21:52 12/21/21 22:00 Temperature Temperature Source Pulse Rate 110 H 102 H Respiratory Rate 24 H 20 H Blood Pressure 80/63 L 91/71 Blood Pressure Mean 68 77 Pulse Ox 94 94 Oxygen Delivery Method Nasal Cannula Nasal Cannula Oxygen Flow Rate (L/min) 2 2 Positive well nourished, well developed and obese; Negative for cachectic, co ntractures or unkempt General Appearance ED: well developed; Negative for unkempt, cachectic, contractures, cyanotic, diaphoretic or NAD Nutritional Appearance: obese; Negative for cachectic HEENT Reports moist mucous membranes; Denies dry mucous membranes Negative for trauma or tenderness Mouth ED: No dry mucous membranes Mouth: No dry mucous membranes Eyes PERRL and EOMs intact bilaterally General Eye ED: Negative for pale conjunctiva, scleral icterus or other Neck No no lymphadenopathy, supple and no JVD General: Negative for tenderness Lymph Lymphatic: Negative for other Chest Wall inspection of chest normal and palpation of chest normal Chest: Negative for other Resp normal respiratory effort and clear to auscultation bilaterally Effort and Inspection: Negative for retractions Auscultation: Negative for rales, rhonchi or wheezes Cardio no murmurs; Negative for regular rate Rate: tachycardic GI normal to inspection, nondistended, normoactive bowel sounds, non-tender, non- distended and no masses Inspection: Negative for abdominal distention Auscultation: normoactive bowel sounds Palpation: soft; Negative for tender Back/Spine no CVA tenderness General Back: Negative for CVA tenderness Cervical Spine: Negative for cervical spine tenderness Extremity Negative for normal to inspection Extremity Narrative: Bruising and trace peripheral edema both lower extremities. General Extremety ED: Yes edema General Extremity: edema Neuro Sensorium / Orientation: lethargic Motor Exam: Negative for strength 5/5 throughout Psych mental status grossly normal Appearance: Negative for unkempt Attitude: No agitated Mood & Affect: Negative for depressed or anxious Skin no rashes or lesions noted and no wounds Lesions: No lesion noted Rashes: No rashes noted Trauma: Negative for abrasion Wounds: Negative for wounds noted MDM MDM MDM Narrative Medical decision making narrative: 66-year-old male with extensive past medical history including congestive heart failure, CT, stents. On Plavix and possibly also Xarelto. He is on milrinone infusion for congestive heart failure. Today developed a fever, decreased mental status and family brought him in. This started around 3:00. Concern is for sepsis. He also has a history of severe congestive heart failure and I do not want him treated with IV fluids at this time until I see further lab work- up. Multiple repeat exams. Patient heart rate is down Cardizem drip. Blood pressure is improved 110/60. He did receive IV fluid bolus. It was general due to his history of CHF and on continued milrinone drip try to prevent him from going into congestive heart failure and having a ejection fraction of around 15% on his most recent echo at an outlying facility. Due to the fever without a source will be started on Zosyn and vancomycin. He has been cultured up and underwent a septic work-up. COVID test is pending. I spoke to our hospitalist and knit goods washer here. Due to the extreme complexity of this patient's care and recent evaluation and work-up at [facility] in [place] I will see if we can transfer him back to their facility. I have the transfer line on page. Lab Data Attestation: I reviewed the patient's lab results. Lab results narrative: CBC shows a white count 1.2. H&H 11.8 and 37. 206,000 platelets. Electrolytes unremarkable. Gap of 8. BUN 29 creatinine 1.45. Urinalysis negative. Chest x-ray negative. PT/INR 20 and 1.8. PTT of 38. COVID-negative. Labs: Laboratory Results - last 24 hr 09/12/21/21 12/21/21 17:15 17:15 17:45 WBC Cancelled Corrected WBC Cancelled RBC Cancelled Hgb Cancelled Hct Cancelled MCV Cancelled MCH Cancelled MCHC Cancelled RDW Std Deviation Cancelled RDW Coeff of Rhea Cancelled Plt Count Cancelled MPV Cancelled Immature Gran % (Auto) Cancelled Neut % (Auto) Cancelled Lymph % (Auto) Cancelled [place] % (Auto) Cancelled Eos % (Auto) Cancelled Baso % (Auto) Cancelled Absolute Neuts (auto) Cancelled Absolute Lymphs (auto) Cancelled Total Counted Cancelled Neutrophils % (Manual) Cancelled Band Neutrophils % Cancelled Lymphocytes % (Manual) Cancelled Monocytes % (Manual) Cancelled Eosinophils % (Manual) Cancelled Basophils % (Manual) Cancelled Metamyelocytes % Cancelled Myelocytes % Cancelled Promyelocytes % Cancelled Blast Cells % Cancelled Plasma Cell % (Manual) Cancelled Other Cells % Cancelled Nucleated RBC % Cancelled Nucleated RBCs/100 WBC Cancelled Differential Comment Cancelled Diff Path Review Cancelled Hypersegmented Neuts Cancelled Atypical Lymphocytes Cancelled Reactive Lymphocytes Cancelled Smudge Cells Cancelled Toxic Granulation Cancelled Toxic Vacuolation Cancelled Dohle Bodies Cancelled Sabrina Rods Cancelled Platelet Estimate Cancelled Plt Morphology Comment Cancelled RBC Morphology Cancelled Polychromasia Cancelled Hypochromasia Cancelled Poikilocytosis Cancelled Basophilic Stippling Cancelled Anisocytosis Cancelled Microcytosis Cancelled Macrocytosis Cancelled Spherocytes Cancelled Sickle Cells Cancelled Target Cells Cancelled Tear Drop Cells Cancelled Ovalocytes Cancelled Stomatocytes Cancelled Mcbride-Plain View Bodies Cancelled Tempe Cells Cancelled Bite Cells Cancelled Crenated Cell Cancelled Acanthocytes (Spur) Cancelled Rouleaux Cancelled Schistocytes Cancelled PT 20.7 H INR 1.8 APTT 38.1 H Sodium Potassium Chloride Carbon Dioxide Anion Gap BUN Creatinine Estim Creat Clear Calc Est GFR (MDRD) Af Amer Est GFR (MDRD) Non-Af BUN/Creatinine Ratio Glucose Calcium Total Bilirubin AST ALT Alkaline Phosphatase Troponin I High Sens Total Protein Albumin Globulin Albumin/Globulin Ratio Urine Color Urine Clarity Urine pH Ur Specific [place] Urine Protein Urine Glucose (UA) Urine Ketones Urine Occult Blood Urine Nitrite Urine Bilirubin Urine Urobilinogen Ur Leukocyte Esterase Urine RBC Urine WBC Ur Squamous Epith Cells Urine Bacteria Urine Mucus POC Glucose 106 09/24/22 09/24/22 09/24/22 17:50 17:50 18:55 WBC 1.2 L* Corrected WBC RBC 4.16 L Hgb 11.8 L Hct 37.5 L MCV 90.1 MCH 28.4 MCHC 31.5 L RDW Std Deviation 55.8 H RDW Coeff of Rhea 16.7 H Plt Count 206 MPV 10.6 Immature Gran % (Auto) 0.000 Neut % (Auto) 82.5 H Lymph % (Auto) 10.0 L [place] % (Auto) 2.5 Eos % (Auto) 4.2 Baso % (Auto) 0.8 Absolute Neuts (auto) 1.0 L Absolute Lymphs (auto) 0.12 L Total Counted Neutrophils % (Manual) Band Neutrophils % Lymphocytes % (Manual) Monocytes % (Manual) Eosinophils % (Manual) Basophils % (Manual) Metamyelocytes % Myelocytes % Promyelocytes % Blast Cells % Plasma Cell % (Manual) Other Cells % Nucleated RBC % 0 Nucleated RBCs/100 WBC Differential Comment Diff Path Review May foll Hypersegmented Neuts Atypical Lymphocytes Reactive Lymphocytes Smudge Cells Toxic Granulation Toxic Vacuolation Dohle Bodies Sabrina Rods Platelet Estimate ADEQUATE Plt Morphology Comment RBC Morphology Polychromasia Hypochromasia Poikilocytosis Basophilic Stippling Anisocytosis 1+ Microcytosis Macrocytosis Spherocytes Sickle Cells Target Cells Tear Drop Cells Ovalocytes Stomatocytes Mcbride-Plain View Bodies [place] Cells Bite Cells Crenated Cell Acanthocytes (Spur) Rouleaux Schistocytes PT INR APTT Sodium 139 Potassium 4.2 Chloride 105 Carbon Dioxide 26.0 Anion Gap 8 BUN 29 H Creatinine 1.45 H Estim Creat Clear Calc 55.00 Est GFR (MDRD) Af Amer 63 Est GFR (MDRD) Non-Af 52 L BUN/Creatinine Ratio 20.0 Glucose 103 Calcium 8.8 Total Bilirubin 0.80 AST 13 L ALT 19 Alkaline Phosphatase 82 Troponin I High Sens Total Protein 7.2 Albumin 3.1 L Globulin 4.1 Albumin/Globulin Ratio 0.8 L Urine Color Yellow Urine Clarity Clear Urine pH 7.0 Ur Specific [place] 1.010 Urine Protein Negative Urine Glucose (UA) Normal Urine Ketones Negative Urine Occult Blood Negative Urine Nitrite Negative Urine Bilirubin Negative Urine Urobilinogen 1 H Ur Leukocyte Esterase Negative Urine RBC 0 SEEN Urine WBC 0 SEEN Ur Squamous Epith Cells 0 SEEN Urine Bacteria 0 SEEN Urine Mucus 0 SEEN POC Glucose 12/21/21 21:00 WBC Corrected WBC RBC Hgb Hct MCV MCH MCHC RDW Std Deviation RDW Coeff of Rhea Plt Count MPV Immature Gran % (Auto) Neut % (Auto) Lymph % (Auto) [place] % (Auto) Eos % (Auto) Baso % (Auto) Absolute Neuts (auto) Absolute Lymphs (auto) Total Counted Neutrophils % (Manual) Band Neutrophils % Lymphocytes % (Manual) Monocytes % (Manual) Eosinophils % (Manual) Basophils % (Manual) Metamyelocytes % Myelocytes % Promyelocytes % Blast Cells % Plasma Cell % (Manual) Other Cells % Nucleated RBC % Nucleated RBCs/100 WBC Differential Comment Diff Path Review Hypersegmented Neuts Atypical Lymphocytes Reactive Lymphocytes Smudge Cells Toxic Granulation Toxic Vacuolation Dohle Bodies Sabrina Rods Platelet Estimate Plt Morphology Comment RBC Morphology Polychromasia Hypochromasia Poikilocytosis Basophilic Stippling Anisocytosis Microcytosis Macrocytosis Spherocytes Sickle Cells Target Cells Tear Drop Cells Ovalocytes Stomatocytes Mcbride-Plain View Bodies [place]pe Cells Bite Cells Crenated Cell Acanthocytes (Spur) Rouleaux Schistocytes PT INR APTT Sodium Potassium Chloride Carbon Dioxide Anion Gap BUN Creatinine Estim Creat Clear Calc Est GFR (MDRD) Af Amer Est GFR (MDRD) Non-Af BUN/Creatinine Ratio Glucose Calcium Total Bilirubin AST ALT Alkaline Phosphatase Troponin I High Sens 57 Total Protein Albumin Globulin Albumin/Globulin Ratio Urine Color Urine Clarity Urine pH Ur Specific [place] Urine Protein Urine Glucose (UA) Urine Ketones Urine Occult Blood Urine Nitrite Urine Bilirubin Urine Urobilinogen Ur Leukocyte Esterase Urine RBC Urine WBC Ur Squamous Epith Cells Urine Bacteria Urine Mucus POC Glucose Radiography Chest X-Ray - ED: 1 View, Read by ED Physician, Read by Radiologist, Normal, Heart, Lungs, Mediastinum, No Acute Disease and Chronic Changes Diagnostic Testing: Clinical Impression(s) from Imaging Studies Chest X-Ray 12/21/21 18:11 IMPRESSION: Poor inspiration with some bibasilar atelectasis. Electronically Signed: Janes Patel MD at 18:37 EDT , Chest x-ray, portable, single view interpreted myself and the radiologist shows no acute abnormality. Chronic changes. Left-sided pacemaker defibrillator. Rhythm Strip Rhythm Strip: A-fib Rate: 165 Ectopy: None EKG Initial EKG: Attestation: I personally reviewed and interpreted this EKG as follows: Interpretation: No Acute Injury Pattern and Atrial Fibrillation Comments: Atrial fibrillation RVR rate of 165. Right bundle branch block which she has had before in the past. Prior EKG tracings: available for review Prior: Changed Critical Care Time Critical Care Time: Yes Critical care time (excluding procedures): 30-74 minutes, Including time spent:, Discussing w/Patient &/or Family/Development And Planning Engineer, Discussing w/Consultants, Arranging Admission or Transfer, Performing Direct Patient Care at Bedside and - Discharge Plan Triage Chief Complaint: Dizziness ED Provider: Andrea Bernard Dx/Rx/DC Orders Clinical Impression: Fever, Atrial fibrillation with rapid ventricular response, Acute hypotension, Neutropenia, Chronic anticoagulation, SIRS (systemic inflammatory response syndrome) Prescriptions: No Action lisinopril 10 MG tablet 10 mg PO DAILY metoprolol tartrate 50 MG tablet 50 mg PO BID amlodipine 10 MG tablet 10 mg PO DAILY Qty: 30 0RF albuterol sulfate [Ventolin HFA] 1 INHALER inhaler 1 - 2 puff inhalation Q4H PRN PRN (Reason: Wheezing) Qty: 1 0RF furosemide 40 MG tablet 40 mg PO DAILY Qty: 30 0RF trazodone 150 MG tablet 150 mg QHS Label Comments: TAKE 1 TABLET EVERY DAY AT BEDTIME NEEDED rivaroxaban 20 MG tablet 20 mg PO DINNER sennosides-docusate sodium 1 TABLET tablet 2 tab PO BID 0RF acetaminophen 500 MG tablet 1,000 mg PO Q8 Qty: 90 0RF rivaroxaban 20 MG tablet 20 mg PO SUPPER 0RF atorvastatin 80 mg Tablet 80 mg PO QHS clopidogrel 75 mg Tablet 75 mg PO DAILY spironolactone 25 mg Tablet 25 mg PO DAILY isosorbide dinitrate 20 mg Tablet 20 mg PO TID Rx Instructions: allow nitrate-free interval of 12-14 hrs per 24-hr period hydralazine 50 mg Tablet 50 mg PO TID digoxin 125 mcg (0.125 mg) Tablet 125 mcg PO DAILY buprenorphine-naloxone [Suboxone] 2-0.5 mg Tablet, Sublingual 2 tab SUBLINGUAL DAILY milrinone in 5 % dextrose 20 mg/100 mL (200 mcg/mL) Piggyback Rx Instructions: 0.375 mcg/kg/hr Entresto 24-26 mg Tablet 1 tab PO BID omeprazole 20 mg Tablet,Disintegrat, Delay Rel 20 mg PO DAILY Primary Care Provider: MAX KIRAN Referrals: MAX KIRAN [Other] Disposition Disposition: Acute Care Hospital Discharge Location: [facility]
[2021-12-21] MEDS: dilTIAZem 25 MG/5 ML Vial IV BOLUS (17:48)
[2021-12-21 17:56] LABS: Bedside Glucose 106 mg/dL (74-106)
[2021-12-21] MEDS: Acetaminophen 500 MG Tablet 1000 MG PO (17:58)
[2021-12-21 18:00] LABS: Absolute Lymphocyte Count 0.12 X10^3/uL (0.83-4.51); Basophil# 0.01 X10^3/uL; Basophil% 0.8 % (0-1); Eosinophil# 0.05 X10^3/uL; Eosinophils% 4.2 % (0-5); Hematocrit 37.5 % (40-54); Hemoglobin 11.8 g/dL (13.0-16.5); Lymphocyte # 0.12 X10^3/ul (0.83-4.51); Mean Corp Hgb Conc 31.5 g/dL (32-36); Mean Corpuscular Hgb 28.4 pg (27.0-32.0); Mean Corpuscular Volume 90.1 fL (80-94); Mean Platelet Vol. 10.6 fl (6.2-12.0); Monocyte# 0.03 X10^3/uL; Monocyte% 2.5 % (0-10); NRBC Flagged by Analyzer 0 % (0-5); Neutrophil # 0.99 X10^3/uL (2.7-7.7); Neutrophil % 82.5 % (47-70); POSITIVE COUNT YES; POSITIVE DIFFERENTIAL YES; Platelet Count 206 K/mm3 (150-450); RBC Distribution Width CV 16.7 % (11.6-14.6); RBC Distribution Width SD 55.8 fl (35.1-43.9); Red Blood Count 4.16 M/mm3 (4.6-6.2)
[2021-12-21 18:05] LABS: Differential Indicated SCAN CRITERIA MET; White Blood Count 1.2 K/mm3 (4.4-11.0)
[2021-12-21 18:10] LABS: International Normalized Ratio 1.8; Prothrombin Time (Protime)PT. 20.7 SECONDS (11.7-14.9)
[2021-12-21 18:11] LABS: Partial Thromboplast Time 38.1 Seconds (24.1-36.2)
--- NOTE | 2021-12-21 18:11 | RAD_ITS ---
STUDY: X-RAY CHEST REASON FOR EXAM: Male, 66 years old. fever TECHNIQUE: Single AP portable view of the chest. COMPARISON: 11/23/2018 FINDINGS: Interval placement of tunneled right internal jugular PICC with tip the catheter overlying the superior vena cava and no pneumothorax. Left subclavian dual-lead pacemaker which is unchanged. Poor inspiration with some bibasilar atelectasis. There is no demonstrated pleural abnormality. Normal size heart. Normal mediastinum and nesha. Normal visualized pulmonary arteries. Normal visualized aortic arch and descending thoracic aorta. Normal visualized thoracic spine. Normal visualized ribs, clavicles, and shoulders. There is no demonstrated abnormality of the visualized soft tissue structures of the upper abdomen. RAD/Chest 1 View (Portable) IMPRESSION: Poor inspiration with some bibasilar atelectasis. Electronically Signed: Janes Patel MD at 18:37 EDT ,
[2021-12-21 18:19] LABS: ALB/GLOB Ratio 0.8 RATIO (0.9-2.4); AST(SGOT) 13 U/L (15-37); Alanine Aminotransfer ALT/SGPT 19 U/L (16-61); Albumin, Serum 3.1 g/dL (3.2-5.0); Alkaline Phosphatase 82 U/L (45-117); Anion Gap 8 (5-15); BUN 29 mg/dL (7-18); Calcium,Total 8.8 mg/dL (8.5-10.1); Chloride 105 mmol/L (98-107); Creatinine, Serum 1.45 mg/dL (0.70-1.30); EST Glomerular Filtration Rate 52 mL/min (>60); Est Glom Filt Rate - Afr Amer 63 mL/min (>60); Globulin 4.1 g/dL (2.2-4.2); Glucose 103 mg/dL (74-106); Potassium 4.2 mmol/L (3.5-5.1); Protein, Total 7.2 g/dL (6.4-8.2); Sodium Level 139 mmol/L (136-145)
[2021-12-21 18:34] LABS: Anisocytosis 1+; Platelet Estimate ADEQUATE (ADEQ)
[2021-12-21 19:03] LABS: Bacteria 0 SEEN /hpf (None Seen); Mucous, Urine 0 SEEN /hpf (<or=2+); Red Blood Cells-Urine 0 SEEN /hpf (0-5); Squamous Epithelial Cells - UA 0 SEEN /hpf (0-5); White Blood Cells 0 SEEN /hpf (0-5)
[2021-12-21 19:09] LABS: Color, Urine Yellow (Yellow); Glucose, Dipstick Normal (Normal); Ketone-Dipstick Negative (Negative); Leukocyte Esterase-Dipstick Negative /ul (Negative); Nitrite-Dipstick Negative (Negative); Occult Blood-Urine Negative /ul (Negative); Protein-Dipstick Negative (Negative); Urine Bilirubin Dipstick Negative (Negative); Urine Clarity Clear (Clear); Urine Urobilinogen 1 mg/dl (Normal)
[2021-12-21] MEDS: Ondansetron 4 MG/2 ML Vial IV (21:25)
--- NOTE | 2021-12-21 21:30 | PCM.CONS.GEN ---
Assessment & Plan Assessment/Plan (1) Atrial fibrillation with rapid ventricular response: (2) Fever: PLAN: Plan The patient is a 66 y/o M w/ PMHx: Remote Hx Cocaine use with Chronic pain sydrome on chronic Suboxone therapy, Tobacco use (1/2 ppd), CKD stage III unclear subtype, Chronic anemia, Permanent AF, CAD s/p multiple PCI x 12 w/ most recent 2016 w/ Hx PA w/ catheterization on 11/25/21, Hx VT s/p AICD placement, CHF Systolic CHF s/p AICD/pacemaker on continus milrinone infusion of note (10/2021 ECHO w/ EF 13%, RV mildly dilated, moderate dysfunction) not transplant candidate secondary to ongoing tobacco use, RODOLFO, Depression and Anxiety, HTN, HLD, Prediabetes mellitus type II (11/25/21 HgbA1c 6.2%), Recent CVA with admission to [facility] w/ noted Acute CHF Exacerbation, Cardiogenic shock, HUI on CKD stage III and Acute CVA (11/25/21-12/11/21) with onset on day of presentation fever up to 101 at home with mild encephalopathy and confusion starting approximately 3 PM prompting family to bring patient to the ED for evaluation. #1. Permanent atrial fibrillation with RVR with concurrent hypotension complicating: EKG in ED w/ atrial fibrillation w/ RVR. Patient administered Cardizem bolus and transition to drip in ED. If unable to appropriately transition to the [facility] bed given complicated presentation pending blood pressure at that time may require ICU versus PCU temporary placement until [facility] bed obtained, maintain on telemetry, obtain cardiac enzyme serial set, obtain magnesium level, recent echo at [facility] with significantly reduced EF of 13% status post AICD/pacemaker, device interrogation request, obtain TSH level, continue for now Cardizem drip with overlap of metoprolol once BP improved, avoid any aggressive hydration given significantly reduced EF, continue patient home Xarelto regimen. If patient did require a prolonged [facility] stay prior to available bed opening at [facility] would request cardiology involvement. #2. Fever, Unclear etiology: Acute illness, possibly viral likely causative of #1, COVID still pending, Bld Cx pending x 2, U CX pending however urinalysis unremarkable, chest x-ray with no overt findings, right upper chest PICC insertion site well-appearing. Given significantly reduced EF with recent cardiogenic shock aggressive IV fluid hydration is not ideal. We will request procalcitonin. If COVID does result positive give 1 oxygen decreased down to 93% on room air while in the ED would initiate IV Decadron and given significant risk and history given creatinine clearance 55 and liver function appropriate would also initiate antiviral therapy and request COVID lab panels. #3. Recent Acute CVA: Occurred on 11/26/21 following complicated cardiac evaluation. MRI Brain from [facility] records w/ right cerebral peduncle with additional punctate infarcts in the posterior midbrain and left frontal lobe with noted possible embolic etiology with prior symptomatology including a right eye gaze palsy, L sided hemiplegia with improvement of symptoms felt likely secondary to LHC versus chronic atrial fibrillation. We will continue patient home Plavix, Xarelto, statin therapy, holding hypertensive regimen with alterations as noted given hypotension. #4. Recent Acute Systolic CHF, Cardiogenic Shock: s/p AICD/pacemaker placement, recent outpatient 11/25/21 catheterization with no intervention but complicated by cardiogenic shock, required nipride and dobutamine, eventually transitioned to milrinone and digoxin w/ PICC placement and outpatient milrinone initiated. Given hypotension currently on Cardizem drip will at this time continue Xarelto, Plavix, digoxin, statin therapy and hold otherwise spironolactone, Entresto, lisinopril. We will continue milrinone drip recently started secondary to complicated hospitalization at [facility]. Will attempt to utilize Lasix in a.m. if BP improves. #5. CAD: s/p multiple PCI x 12 w/ most recent 2017 w/ Hx PA, catheterization on 11/25/21 with no intervention performed but had post-cardiac catheterization cardiogenic shock as noted. Given hypotension and necessity given A. fib RVR for Cardizem drip will continue as noted Xarelto, Plavix, statin therapy, holding hypertension regimen otherwise. #6. Prediabetes: Recently diagnosed prediabetes with [facility] hemoglobin A1c 6.2%, maintain on ADA diet with insulin sliding scale with Accu-Chek. #7. Hypertension: Given low blood pressure upon presentation, holding hypertensive regimen with alterations as noted otherwise, add back once appropriate. #8. Hyperlipidemia: We will continue patient home statin therapy. #9. Chronic normocytic anemia: Admission hemoglobin 0.8, MCV 90.1, baseline hemoglobin 11-12, stable, continue to trend. #10. Chronic Kidney Disease Stage III, unclear subtype: Admission BUN/Cr 29/1.45, baseline renal function primarily 1.2-1.5, repeat BMP in AM. #11. History polysubstance abuse including cocaine with chronic pain syndrome: We will continue patient home Suboxone chronic regimen. #12. Tobacco Abuse: Encouraged cessation, inpatient consultation per RT, NR if desired. #13. RODOLFO CPAP nightly. #14. DVT prophylaxis: SCDs, continue patient home Xarelto regimen. #15. CODE status: Patient does not have a formal healthcare power of chief gauger or living will set up. He noted that if he was unable to make medical decisions he would want his son to be the decision maker at that time. Discussed CODE status at length including difference between FULL code, DNR-CCA and DNR-CC status. Following discussions about the differences in these status, requested full CODE STATUS despite his significant comorbidities and history. Advanced Care Planning Face to Face Time: 16 minutes. HPI Consult Data Date of Consult: 12/21/21 HPI Narrative Reason for Consultation: Atrial fibrillation with RVR, Fever unclear etiology for possible admission HPI Narrative: The patient is a 66 y/o M w/ PMHx: Remote Hx Cocaine use with Chronic pain sydrome on chronic Suboxone therapy, Tobacco use (1/2 ppd), CKD stage III unclear subtype, Chronic anemia, Permanent AF, CAD s/p multiple PCI x 12 w/ most recent 2016 w/ Hx PA w/ catheterization on 11/25/21, Hx VT s/p AICD placement, CHF Systolic CHF s/p AICD/pacemaker on continus milrinone infusion of note (10/2021 ECHO w/ EF 13%, RV mildly dilated, moderate dysfunction) not transplant candidate secondary to ongoing tobacco use, RODOLFO, Depression and Anxiety, HTN, HLD, Prediabetes mellitus type II (11/25/21 HgbA1c 6.2%), Recent CVA with admission to [facility] w/ noted Acute CHF Exacerbation, Cardiogenic shock, HUI on CKD stage III and Acute CVA (11/25/21-12/11/21) with onset on day of presentation fever up to 101 at home with mild encephalopathy and confusion starting approximately 3 PM prompting family to bring patient to the ED for evaluation. Patient roommate and niece present deny any recent illness themselves. He was COVID Pfizer vaccinated x 1 only 03/2021. He denies any concurrent headache, sore throat, cough, dysuria, nausea, emesis, abdominal pain, chest pain. Work-up in the ED included T99.7, heart rate 116, BP 194/68, respiratory rate 22, 95% on 2 L nasal cannula, CBC with WBC 1.2, hemoglobin 11.8, MCV 90.1, platelet 206 with neutropenia and lymphopenia, coags with PT 20.7, INR 1.8, PTT 38.1, CMP with BUN/creatinine 29/1.45, hepatic profile not marked appearing, COVID antigen pending, lactic acid pending upon requested evaluation of patient, urinalysis unremarkable, blood culture x2 pending per ED, urine culture pending per ED, chest x-ray with poor inspiration with some bibasilar atelectasis with otherwise no acute cardiopulmonary findings, EKG with atrial fibrillation with RVR with rate 165 with a right bundle branch block similar to prior. In the ED patient ministered diltiazem 25 mg IV bolus and started on a drip as well as administered Tylenol 1000 mg p.o. x1. Patient with low BP and concerning sepsis apparent per ED physician report however given significant CHF history deferred any aggressive hydration. Reviewed case with Dr. Darling and Dr. Bernard and given notably complicated history felt patient best course to return to [facility]. Awaiting to ascertain bed availabiliy. PFSH Medical History CAD (coronary artery disease) Cardiogenic shock Chronic anemia CKD (chronic kidney disease), stage III History of CVA (cerebrovascular accident) HLD (hyperlipidemia) HTN (hypertension) RODOLFO (obstructive sleep apnea) Permanent atrial fibrillation Prediabetes Presence of combination internal cardiac defibrillator (ICD) and pacemaker Systolic CHF Tobacco use Home Medications lisinopril 10 mg tablet 10 mg PO DAILY 03/07/13 [History Last Taken 01/16/20] metoprolol tartrate 50 mg tablet 50 mg PO BID 03/07/13 [History Last Taken 01/16/20] albuterol sulfate 90 mcg/actuation aerosol inhaler (Ventolin HFA) 1 - 2 puff inhalation Q4H PRN PRN Wheezing ##1 08/17/16 [Rx Last Taken Unknown] amlodipine 10 mg tablet 10 mg PO DAILY ##30 08/17/16 [Rx Last Taken 01/16/20] furosemide 40 mg tablet 40 mg PO DAILY ##30 09/07/16 [Rx Last Taken Unknown] rivaroxaban 20 mg tablet 20 mg PO DINNER 01/16/20 [History Last Taken Unknown] trazodone 150 mg tablet 150 mg QHS 01/16/20 [History Last Taken Unknown] acetaminophen 500 mg tablet 1,000 mg PO Q8 #90 tabs 01/17/20 [Rx Last Taken Unknown] rivaroxaban 20 mg tablet 20 mg PO SUPPER 01/17/20 [Rx Last Taken Unknown] sennosides 8.6 mg-docusate sodium 50 mg tablet 2 tab PO BID 01/17/20 [Rx Last Taken Unknown] atorvastatin 80 mg tablet 80 mg PO QHS 12/21/21 [History Last Taken Unknown] buprenorphine 2 mg-naloxone 0.5 mg sublingual tablet 2 tab sublingual DAILY 12/21/21 [History Last Taken Unknown] clopidogrel 75 mg tablet 75 mg PO DAILY 12/21/21 [History Last Taken Unknown] digoxin 125 mcg (0.125 mg) tablet 125 mcg PO DAILY 12/21/21 [History Last Taken Unknown] hydralazine 50 mg tablet 50 mg PO TID 12/21/21 [History Last Taken Unknown] isosorbide dinitrate 20 mg tablet 20 mg PO TID 12/21/21 [History Last Taken Unknown] milrinone 20 mg/100 mL(200 mcg/mL) in 5 % dextrose intravenous piggybk ea 12/21/21 [History Last Taken Unknown] omeprazole 20 mg delayed release,disintegrating tablet 20 mg PO DAILY 12/21/21 [History Last Taken Unknown] sacubitril 24 mg-valsartan 26 mg tablet (Entresto) 1 tab PO BID 12/21/21 [History Last Taken Unknown] spironolactone 25 mg tablet 25 mg PO DAILY 12/21/21 [History Last Taken Unknown] Allergy/AdvReac Type Severity Reaction Status Date / Time codeine Allergy Itching Verified 01/16/20 05:39 Family History (Updated 12/21/21 @ 20:[address] Cornelia Mcmanus MD) Father Cancer Mother Diabetes Heart disease Surgical History (Updated 12/21/21 @ 21:[address] Cornelia Mcmanus MD) H/O heart artery stent History of mastoidectomy S/P cardiac pacemaker procedure S/P implantation of automatic cardioverter/defibrillator (AICD) S/P total knee replacement Social History (Updated 12/21/21 @ 20:[address] Cornelia Mcmanus MD) household members: none Smoking Status: Current every day smoker tobacco type: cigarettes Smoking packs per day: 0.5 Smoking cigarettes per day: 10.0 alcohol intake: never substance use type: former substance user and other details: On Chronic suboxone therapy. ROS ROS Narrative Admission Review of Systems: CONSTITUTIONAL: No weight loss, chills, + fever, weakness or fatigue. HEENT: + Recent Acute CVA w/ improved R eye gaze palsy. Eyes: No visual loss, blurred vision, double vision or yellow sclerae. Ears, Nose, Throat: No hearing loss, sneezing, congestion, runny nose or sore throat. SKIN: + BL LE chronic stasis changes. CARDIOVASCULAR: + Perm AF, chronic orthopnea, chronic BL LE edema. No chest pain, chest pressure or chest discomfort, syncopal events. RESPIRATORY: No shortness of breath, cough or sputum, wheezing, hemoptysis. GASTROINTESTINAL: No anorexia, nausea, vomiting or diarrhea, abdominal pain, melena, BRBPR. GENITOURINARY: No dysuria, frequency, urgency or retention. NEUROLOGICAL: + Confusion. Recent CVA w/ improved R eye gaze palsy and L hemiplegia, No headache, dizziness, syncope, paralysis, ataxia, change in bowel or bladder control, seizure. MUSCULOSKELETAL: + muscle, back pain, joint pain or stiffness. HEMATOLOGIC: + anemia, bleeding or bruising. LYMPHATICS: No enlarged nodes. No history of splenectomy. PSYCHIATRIC: No history of depression or anxiety. ENDOCRINOLOGIC: No reports of sweating, cold or heat intolerance. No polyuria or polydipsia. ALLERGIES: No history of asthma, hives, eczema or rhinitis. Physical Exam Narrative Physical Examination: General: Awake, alert, oriented x 3 and cooperative, seated upright in bed in no apparent distress, fatigued. Skin: Normal color, normal turgor, no icterus, no cyanosis except for notable bilateral lower extremity venous stasis skin changes. HEENT: AT/NC, EOMI with notable improvement of prior reported right eye gaze palsy, PERRLA, mildly dry MM, no carotid bruits or JVD noted. Lungs: Significantly diminished, greater bases, no evidence of any respiratory distress, mildly increased respiratory rate, no rales, ronchi or wheezing. Heart: Irregular irregular; no gallop, rub audible, right upper chest PICC in place well-appearing. Abdomen: Soft, obese, NTTP, ND, distant normal BS, no obvious evidence of HSM. Extremities: No cyanosis, no clubbing, bilateral lower extremity distal tracey to distal pedal unchanged 1-2+ pitting edema, stasis changes. Neurological: Patient awake, alert, oriented as noted, improved from prior as had been noted to be very confused, cognitive function improving, suspect nearing baseline intact; pupils equally reactive to light and accommodation with notable improvement of prior reported right eye gaze palsy, cranial nerves grossly normal, moving all 4 extremities, significantly proved left-sided strength with prior recent acute CVA with left-sided hemiplegia, strength given acute presentation is moderately to severely globally decreased Psychiatric: Affect appears flat, fatigued no acute evidence of depressive or anxiety feelings. Lab / Micro Data Result Diagrams: 12/21/21 17:50 12/21/21 17:50 Labs: Laboratory Results - last 24 hr 12/21/21 17:15: WBC Cancelled, Corrected WBC Cancelled, RBC Cancelled, Hgb Cancelled, Hct Cancelled, MCV Cancelled, MCH Cancelled, MCHC Cancelled, RDW Std Deviation Cancelled, RDW Coeff of Rhea Cancelled, Plt Count Cancelled, MPV Cancelled, Immature Gran % (Auto) Cancelled, Neut % (Auto) Cancelled, Lymph % (Auto) Cancelled, [place] % (Auto) Cancelled, Eos % (Auto) Cancelled, Baso % (Auto) Cancelled, Absolute Neuts (auto) Cancelled, Absolute Lymphs (auto) Cancelled, Total Counted Cancelled, Neutrophils % (Manual) Cancelled, Band Neutrophils % Cancelled, Lymphocytes % (Manual) Cancelled, Monocytes % (Manual) Cancelled, Eosinophils % (Manual) Cancelled, Basophils % (Manual) Cancelled, Metamyelocytes % Cancelled, Myelocytes % Cancelled, Promyelocytes % Cancelled, Blast Cells % Cancelled, Plasma Cell % (Manual) Cancelled, Other Cells % Cancelled, Nucleated RBC % Cancelled, Nucleated RBCs/100 WBC Cancelled, Differential Comment Cancelled, Diff Path Review Cancelled, Hypersegmented Neuts Cancelled, Atypical Lymphocytes Cancelled, Reactive Lymphocytes Cancelled, Smudge Cells Cancelled, Toxic Granulation Cancelled, Toxic Vacuolation Cancelled, Dohle Bodies Cancelled, Sabrina Rods Cancelled, Platelet Estimate Cancelled, Plt Morphology Comment Cancelled, RBC Morphology Cancelled, Polychromasia Cancelled, Hypochromasia Cancelled, Poikilocytosis Cancelled, Basophilic Stippling Cancelled, Anisocytosis Cancelled, Microcytosis Cancelled, Macrocytosis Cancelled, Spherocytes Cancelled, Sickle Cells Cancelled, Target Cells Cancelled, Tear Drop Cells Cancelled, Ovalocytes Cancelled, Stomatocytes Cancelled, Mcbride-[place] Bodies Cancelled, [place] Cells Cancelled, Bite Cells Cancelled, Crenated Cell Cancelled, Acanthocytes (Spur) Cancelled, Rouleaux Cancelled, Schistocytes Cancelled 12/21/21 17:15: POC Glucose 106 12/21/21 17:45: PT 20.7 H, INR 1.8, APTT 38.1 H 12/21/21 17:50: Sodium 139, Potassium 4.2, Chloride 105, Carbon Dioxide 26.0, Anion Gap 8, BUN 29 H, Creatinine 1.45 H, Estim Creat Clear Calc 55.00, Est GFR (MDRD) Af Amer 63, Est GFR (MDRD) Non-Af 52 L, BUN/Creatinine Ratio 20.0, Glucose 103, Calcium 8.8, Total Bilirubin 0.80, AST 13 L, ALT 19, Alkaline Phosphatase 82, Total Protein 7.2, Albumin 3.1 L, Globulin 4.1, Albumin/Globulin Ratio 0.8 L 12/21/21 17:50: WBC 1.2 L*, RBC 4.16 L, Hgb 11.8 L, Hct 37.5 L, MCV 90.1, MCH 28.4, MCHC 31.5 L, RDW Std Deviation 55.8 H, RDW Coeff of Rhea 16.7 H, Plt Count 206, MPV 10.6, Immature Gran % (Auto) 0.000, Neut % (Auto) 82.5 H, Lymph % (Auto) 10.0 L, [place] % (Auto) 2.5, Eos % (Auto) 4.2, Baso % (Auto) 0.8, Absolute Neuts (auto) 1.0 L, Absolute Lymphs (auto) 0.12 L, Nucleated RBC % 0, Diff Path Review May foll, Platelet Estimate ADEQUATE, Anisocytosis 1+ 12/21/21 18:55: Urine Color Yellow, Urine Clarity Clear, Urine pH 7.0, Ur Specific [place] 1.010, Urine Protein Negative, Urine Glucose (UA) Normal, Urine Ketones Negative, Urine Occult Blood Negative, Urine Nitrite Negative, Urine Bilirubin Negative, Urine Urobilinogen 1 H, Ur Leukocyte Esterase Negative, Urine RBC 0 SEEN, Urine WBC 0 SEEN, Ur Squamous Epith Cells 0 SEEN, Urine Bacteria 0 SEEN, Urine Mucus 0 SEEN Rhythm Strip Rhythm Strip: A-fib Rate: 165 Ectopy: None Radiology Impression Chest X-Ray 12/21/21 18:11 IMPRESSION: Poor inspiration with some bibasilar atelectasis. Electronically Signed: Janes Patel MD at 18:37 EDT , Charges/Coding Visit Charges Office Visits / Consults: 53161 IP Consult L5 Procedures Hospitalists Procedures: 79324 Advncd Care Plan 30 Min
[2021-12-21 21:32] LABS: Troponin-I HS 57 pg/mL (3.0-78.0)
[2021-12-21 22:46] LABS: Lactic Acid 1.7 mmol/L (0.4-1.9)
[2021-12-22 00:31] VITALS: BP 84/67; PULSE 75; RESP 23; O2SAT 93
[2021-12-22 01:05] VITALS: BP 82/63; PULSE 86; RESP 20; TEMP 36.5; O2SAT 94
--- NOTE | 2021-12-22 07:48 | ED.RN ---
LAB CALLS THIS RN WITH PRELIMINARY POSITIVE BLOOD CULTURE FOR THE PT. THIS RN CALLS DELMA NICOLE SPEAKS WITH RN ASHLEIGH WHOM IS CARING FOR PT. ASHLEIGH INFORMED OF POSITIVE BLOOD CULTURE RESULTS. FAX NUMBER SHARED WITH THIS RN TO FAX REPORT. FAX COMPLETED PER ED VECTOR CONTROL ASSISTANT WILLIAM.
[2021-12-23 12:36] LABS: Pathologist Review Reviewed
== END 2021-12-22 02:09 | disposition short-term general hospital (02) ==
PROVIDERS: Emergency Provider Emergency Medicine; Visit Provider Emergency Medicine
DX: I48.21 Permanent atrial fibrillation (principal); D70.9 Neutropenia, unspecified; R65.10 Systemic inflammatory response syndrome (SIRS) of non-infectious origin without acute organ dysfunction; I13.0 Hypertensive heart and chronic kidney disease with heart failure and stage 1 through stage 4 chronic kidney disease, or unspecified chronic kidney disease; I50.22 Chronic systolic (congestive) heart failure; I48.91 Unspecified atrial fibrillation; N18.30 Chronic kidney disease, stage 3 unspecified; G93.40 Encephalopathy, unspecified; I25.10 Atherosclerotic heart disease of native coronary artery without angina pectoris; D64.9 Anemia, unspecified; I95.9 Hypotension, unspecified; R50.81 Fever presenting with conditions classified elsewhere; E78.5 Hyperlipidemia, unspecified; R73.03 Prediabetes; G89.4 Chronic pain syndrome; Z20.822 Contact with and (suspected) exposure to COVID-19; G47.33 Obstructive sleep apnea (adult) (pediatric); F17.210 Nicotine dependence, cigarettes, uncomplicated; I25.2 Old myocardial infarction; Z79.01 Long term (current) use of anticoagulants; Z79.02 Long term (current) use of antithrombotics/antiplatelets; Z79.899 Other long term (current) drug therapy; Z86.73 Personal history of transient ischemic attack (TIA), and cerebral infarction without residual deficits; Z95.5 Presence of coronary angioplasty implant and graft; Z95.810 Presence of automatic (implantable) cardiac defibrillator
CPT/HCPCS: 71045; 80053; 81001; 82962; 83605; 84484; 85025; 85610; 85730; 87040; 87077; 87086; 87088; 87186; 87426; 93005; 96365; 96366; 96367; 96372; 96375; 96376; 99284; J7040; J7050; A4216; J2405; J3470

== ENCOUNTER 2021-12-31 10:19 | Outpatient (CLI) | payer MEDICARE, SELFPAY ==
[2021-12-31 11:15] LABS: Absolute Lymphocyte Count 0.93 X10^3/uL (0.83-4.51); Absolute Neutrophil Count 0.7 X10^3/uL (2.0-7.7); Basophil# 0.05 X10^3/uL; Basophil% 2.2 % (0-1); Eosinophil# 0.19 X10^3/uL; Eosinophils% 8.4 % (0-5); Erythrocyte Sedimentation Rate 28 mm/hr (0-20); Hematocrit 34.6 % (40-54); Hemoglobin 10.7 g/dL (13.0-16.5); Lymphocyte # 0.93 X10^3/ul (0.83-4.51); Mean Corp Hgb Conc 30.9 g/dL (32-36); Mean Corpuscular Hgb 28.6 pg (27.0-32.0); Mean Corpuscular Volume 92.5 fL (80-94); Mean Platelet Vol. 9.3 fl (6.2-12.0); Monocyte# 0.37 X10^3/uL; Monocyte% 16.3 % (0-10); NRBC Flagged by Analyzer 0 % (0-5); Neutrophil # 0.72 X10^3/uL (2.7-7.7); Neutrophil % 31.7 % (47-70); POSITIVE DIFFERENTIAL YES; Platelet Count 406 K/mm3 (150-450); RBC Distribution Width CV 15.9 % (11.6-14.6); Red Blood Count 3.74 M/mm3 (4.6-6.2); White Blood Count 2.3 K/mm3 (4.4-11.0)
[2021-12-31 11:18] LABS: Differential Indicated SCAN CRITERIA MET
[2021-12-31 11:26] LABS: Vancomycin, Trough Level 18.7 ug/mL (5.0-15.0)
[2021-12-31 11:28] LABS: ALB/GLOB Ratio 0.8 RATIO (0.9-2.4); AST(SGOT) 12 U/L (15-37); Alanine Aminotransfer ALT/SGPT 17 U/L (16-61); Albumin, Serum 2.7 g/dL (3.2-5.0); Alkaline Phosphatase 75 U/L (45-117); Anion Gap 8 (5-15); BUN 20 mg/dL (7-18); BUN/Creat Ratio 17.4 RATIO (10-20); Calcium,Total 8.6 mg/dL (8.5-10.1); Chloride 111 mmol/L (98-107); Creatinine, Serum 1.15 mg/dL (0.70-1.30); EST Glomerular Filtration Rate 68 mL/min (>60); Est Glom Filt Rate - Afr Amer 82 mL/min (>60); Globulin 3.5 g/dL (2.2-4.2); Glucose 141 mg/dL (74-106); Potassium 4.4 mmol/L (3.5-5.1); Protein, Total 6.2 g/dL (6.4-8.2); Sodium Level 142 mmol/L (136-145)
[2021-12-31 11:34] LABS: BNP,B-Type NATRIURETIC PEPTIDE 168.1 pg/mL (0-100)
[2021-12-31 12:26] LABS: Platelet Estimate SLT INC (ADEQ); Red Cell Morphology NORM C+C NORMAL (NORM C&C)
== END 2021-12-31 23:59 | disposition home or self-care (01) ==
LOC: LABSPEC 10:28
PROVIDERS: Visit Provider Internal Medicine Infectious Disease
DX: R78.81 Bacteremia (principal); I13.0 Hypertensive heart and chronic kidney disease with heart failure and stage 1 through stage 4 chronic kidney disease, or unspecified chronic kidney disease; I50.9 Heart failure, unspecified; N18.9 Chronic kidney disease, unspecified
CPT/HCPCS: 80053; 80202; 83880; 85025; 85652

== ENCOUNTER → 2022-01-07 | Outpatient (CLI) | payer MEDICARE, SELFPAY ==
[2022-01-07 14:46] LABS: BNP,B-Type NATRIURETIC PEPTIDE 131.1 pg/mL (0-100)
[2022-01-07 14:53] LABS: Anion Gap 4 (5-15); BUN 29 mg/dL (7-18); BUN/Creat Ratio 17.5 RATIO (10-20); Calcium,Total 9.1 mg/dL (8.5-10.1); Chloride 108 mmol/L (98-107); Creatinine, Serum 1.66 mg/dL (0.70-1.30); EST Glomerular Filtration Rate 44 mL/min (>60); Est Glom Filt Rate - Afr Amer 54 mL/min (>60); Glucose 116 mg/dL (74-106); Potassium 4.6 mmol/L (3.5-5.1); Sodium Level 141 mmol/L (136-145)
== END | disposition home or self-care (01) ==
LOC: LABSPEC 14:09
DX: I13.0 Hypertensive heart and chronic kidney disease with heart failure and stage 1 through stage 4 chronic kidney disease, or unspecified chronic kidney disease (principal); N18.9 Chronic kidney disease, unspecified
CPT/HCPCS: 80048; 83880

== ENCOUNTER → 2022-01-14 | Outpatient (CLI) | payer MEDICARE, SELFPAY ==
[2022-01-14] MEDS: Alteplase 2 MG/2 ML Vial IV ×2 (11:28)
== END | disposition home or self-care (01) ==
LOC: MEDOUTP 11:00
PROVIDERS: Referring Provider Physician Assistant; Visit Provider Physician Assistant
DX: Z45.2 Encounter for adjustment and management of vascular access device (principal)
CPT/HCPCS: 36593; J2997; A4216

== ENCOUNTER → 2022-01-20 | Outpatient (CLI) | payer MEDICARE, SELFPAY ==
[2022-01-20 15:02] LABS: Anion Gap 6 (5-15); BUN 30 mg/dL (7-18); BUN/Creat Ratio 19.6 RATIO (10-20); Calcium,Total 8.6 mg/dL (8.5-10.1); Chloride 110 mmol/L (98-107); Creatinine, Serum 1.53 mg/dL (0.70-1.30); EST Glomerular Filtration Rate 49 mL/min (>60); Est Glom Filt Rate - Afr Amer 59 mL/min (>60); Glucose 112 mg/dL (74-106); Potassium 4.7 mmol/L (3.5-5.1); Sodium Level 140 mmol/L (136-145)
[2022-01-20 15:17] LABS: BNP,B-Type NATRIURETIC PEPTIDE 206.8 pg/mL (0-100)
== END | disposition home or self-care (01) ==
LOC: LABSPEC 13:43
DX: I13.0 Hypertensive heart and chronic kidney disease with heart failure and stage 1 through stage 4 chronic kidney disease, or unspecified chronic kidney disease (principal); I50.43 Acute on chronic combined systolic (congestive) and diastolic (congestive) heart failure
CPT/HCPCS: 80048; 83880

== ENCOUNTER → 2022-01-24 | Outpatient (CLI) | payer MEDICARE, SELFPAY ==
--- NOTE | 2022-01-24 08:05 | VDUE_ITS ---
Reason For Study: LUE SWELLING Right Proximal Left Proximal Right subclavian vein is spontaneous, widely Left jugular vein is spontaneous, widely patent, phasic, with no intraluminal patent, phasic, with no intraluminal echogenicity noted. echogenicity noted. Left subclavian vein is spontaneous, widely patent, phasic, with no intraluminal echogenicity noted. Left Arm Left axillary vein is spontaneous, patent, phasic, competent, compressible and demonstrates augmentation. Left brachial vein is compressible. Left cephalic vein is compressible. Left basilic vein is compressible. Left Lower Arm Left radial vein is compressible. Left ulnar vein is compressible. Patient Safety CENTRAL LINE IN RIGHT CHEST. LINE SEEN IN RT SUBCLAVIAN VEIN. VL/Venous Duplex US, Unilateral Interpretation Summary No evidence for acute deep venous thrombosis[left] upper extremity with patent and compressible cephalic and basilic veins. Notation is made of a central line within the right subclavian vein Ordering Physician: GUNNER CHEN Referring Physician: OTD Performed By: Alyce Christianson RDCS, RVT ???
== END | disposition home or self-care (01) ==
LOC: CVS 08:01
DX: M79.89 Other specified soft tissue disorders (principal)
CPT/HCPCS: 93971

== ENCOUNTER → 2022-01-27 | Outpatient (CLI) | payer MEDICARE, SELFPAY ==
[2022-01-27 13:50] LABS: Anion Gap 6 (5-15); BUN 28 mg/dL (7-18); BUN/Creat Ratio 19.4 RATIO (10-20); Calcium,Total 8.6 mg/dL (8.5-10.1); Chloride 110 mmol/L (98-107); Creatinine, Serum 1.44 mg/dL (0.70-1.30); EST Glomerular Filtration Rate 52 mL/min (>60); Est Glom Filt Rate - Afr Amer 63 mL/min (>60); Glucose 161 mg/dL (74-106); Potassium 4.2 mmol/L (3.5-5.1); Sodium Level 142 mmol/L (136-145)
[2022-01-27 13:53] LABS: BNP,B-Type NATRIURETIC PEPTIDE 76.4 pg/mL (0-100)
== END | disposition home or self-care (01) ==
LOC: LABSPEC 13:15
DX: I13.0 Hypertensive heart and chronic kidney disease with heart failure and stage 1 through stage 4 chronic kidney disease, or unspecified chronic kidney disease (principal); I50.43 Acute on chronic combined systolic (congestive) and diastolic (congestive) heart failure
CPT/HCPCS: 80048; 83880

== ENCOUNTER 2022-01-31 12:14 | Outpatient (CLI) | payer MEDICARE, SELFPAY | END 2022-01-31 23:59 | disposition home or self-care (01) | LOC: LAB 12:16 | PROVIDERS: Referring Provider Internal Medicine Infectious Disease; Visit Provider Internal Medicine Infectious Disease | DX: T80.211D Bloodstream infection due to central venous catheter, subsequent encounter (principal); I50.22 Chronic systolic (congestive) heart failure | CPT/HCPCS: 36415; 80053; 83880; 85025; 86703; 87040 ==

== ENCOUNTER → 2022-02-03 | Outpatient (CLI) | payer MEDICARE, SELFPAY ==
[2022-02-03 16:03] LABS: Anion Gap 5 (5-15); BUN 26 mg/dL (7-18); Calcium,Total 8.7 mg/dL (8.5-10.1); Chloride 107 mmol/L (98-107); Creatinine, Serum 1.86 mg/dL (0.70-1.30); EST Glomerular Filtration Rate 39 mL/min (>60); Est Glom Filt Rate - Afr Amer 47 mL/min (>60); Glucose 147 mg/dL (74-106); Potassium 4.3 mmol/L (3.5-5.1); Sodium Level 139 mmol/L (136-145)
[2022-02-03 16:11] LABS: BNP,B-Type NATRIURETIC PEPTIDE 74.2 pg/mL (0-100)
== END | disposition home or self-care (01) ==
LOC: LABSPEC 15:22
DX: I13.0 Hypertensive heart and chronic kidney disease with heart failure and stage 1 through stage 4 chronic kidney disease, or unspecified chronic kidney disease (principal); N18.30 Chronic kidney disease, stage 3 unspecified
CPT/HCPCS: 80048; 83880

== ENCOUNTER → 2022-02-07 | Outpatient (CLI) | payer MEDICARE, SELFPAY ==
--- NOTE | 2022-02-07 12:51 | VDLE_ITS ---
Reason For Study: LEG SWELLING RIGHT LEFT GSV is normal. GSV is normal. CFV is compressible, spontaneous, phasic, CFV is compressible, spontaneous, phasic, competent and demonstrates normal competent, and demonstrates normal augmentation. augmentation. FV is compressible, spontaneous, phasic, FV is compressible, spontaneous, phasic, competent and demonstrates normal competent and demonstrates normal augmentation. augmentation. POP V is compressible, spontaneous, phasic, POP V is compressible, spontaneous, phasic, competent and demonstrates normal competent and demonstrates normal augmentation. augmentation. T/P Trunk is compressible. T/P Trunk is compressible. PTV is compressible. PTV is compressible. RT PerV is compressible. LT PerV is compressible. Procedure This is a venous duplex using B-mode, color flow and spectral Doppler. Exam performed in department. The exam was diagnostic. A preliminary report was called and/or faxed to Dr. Chen's office. VL/Venous Duplex US - Michel Extrem Interpretation Summary No evidence for acute deep venous thrombosis bilateral lower extremities with p atent and compressible bilateral great saphenous veins. Ordering Physician: GUNNER CHEN Referring Physician: None - specified Performed By: Tono Everett, RVT
== END | disposition home or self-care (01) ==
LOC: CVS 12:50
DX: M79.89 Other specified soft tissue disorders (principal)
CPT/HCPCS: 93970